=== PATIENT | female | born 1985 | race Caucasian/White ===

== ENCOUNTER → 2017-08-18 10:52 | Outpatient (CLI) | payer OTHER, SELFPAY ==
[2017-08-18 11:48] LABS: Hemoglobin A1c 4.5 % (4.2-6.3)
[2017-08-18 12:04] LABS: Estradiol 101.6 pg/mL; Free T3 2.6 pg/mL (2.18-3.98); Thyroid Stim Hormone (TSH) 0.88 uIU/mL (0.358-3.74)
[2017-08-18 12:05] LABS: Progesterone Level 5.11 ng/mL (See Comment)
== END ==
PROVIDERS: Visit Provider Obstetrics & Gynecology
DX: N92.6 Irregular menstruation, unspecified (principal)
CPT/HCPCS: 36415; 82670; 83036; 84144; 84403; 84443; 84481

== ENCOUNTER 2017-08-30 23:23 | Observation (INO) | payer OTHER, SELFPAY ==
[2017-08-30 21:22] VITALS: BP 171/89; PULSE 90; RESP 20; TEMP 36.4; O2SAT 99; BMI 37.7
--- NOTE | 2017-08-30 21:47 | ED.DCSUM_ITS ---
- ER Visit Summary Date of Service: 08/30/17 Chief Complaint: Right ankle injury History of Present Illness: The patient is a 32 F who was walking her dog and slipped on ice, injuring her right ankle. Severe sudden pain, unable to move it or put weight on it, presents by EMS. Cut out of the boot that she was wearing. Physical Examination: In acute painful distress. No deformity of the right ankle, however the slightest movement creates severe pain, and her foot is abnormally externally rotated with regards to the position of the patella/knee. Swelling and tenderness lateral malleolus, no lacerations or break in the skin. Neurovascularly intact distally with 2+ dorsalis pedis pulse and able to wiggle her toes, brisk cap refill. No tenderness of the proximal fibula or elsewhere in the knee. Abrasion mid doyle. Test Results: Right ankle x-ray shows displaced segmental fracture of the tibia and fibula at about the junction of the distal third and middle third, above the ankle. This is likely at the level of the top of her boot that she was wearing. Emergency Department Course and Treatment: Patient is in extreme pain with the slightest movement at all of her right lower extremity, which is quite unstable and is abnormally externally rotated distal to the knee, although not otherwise deformed lying in the bed at rest. She has not eaten in [address] Kaminski who is amenable to admitting her for pain control and reevaluation , we will reduce and splint her and provide procedural sedation. After informed consent, patient was given fentanyl followed by propofol for procedural sedation, which was performed by myself and nurse without complication. With an marketing assistant retail division, I performed gentle closed reduction with distraction and internal rotation of the foot, and placed a fabricated Ortho- Glass short leg posterior splint with sugar tong also made of Ortho-Glass. After wrapping and molding, she is neurovascularly intact distally, and on reevaluation she states it is throbbing but it feels better because it feels more stable. Postreduction x-rays show improvement of the anterior tibial displacement, but there is still lateral displacement of approximately 1 centimeter. Disposition: Admit Impression: Acute closed displaced right distal tibia and fibula fractures This note was generated with [employer] dictation software. It may contain incorrect words, spelling, and punctuation that were not noted in review of the chart prior to signing ED Disposition - Plan for ED Patient: Disposition: Acute Care Hospital [facility] Chief Complaint: Lower Extremity Injury
[2017-08-30] MEDS: Ondansetron 4 MG/2 ML Vial IV (21:52)
--- NOTE | 2017-08-30 21:54 | RAD_ITS ---
STUDY: X-RAY - RIGHT ANKLE REASON FOR EXAM: Female, 32 years old. Status post fall. Pain. TECHNIQUE: 2 view(s) of the ankle. COMPARISON: None. FINDINGS: There is a mildly comminuted acute traumatic fracture of the distal tibial shaft with 1.1 cm anterior displacement. There is a mildly comminuted acute traumatic fracture of the distal fibular shaft with 6 mm lateral displacement and mild angulation convex medially. As seen on lateral view, there is a questionable finding of a vertical fracture through the posterior malleolus with 0.5 mm superior displacement. Visualization is of this area is limited by overlap with the distal fibula. Normal medial and lateral malleoli. Normal tibiotalar articulation and ankle mortise. Normal visualized talus and calcaneus. The visualized subtalar, talonavicular, calcaneocuboid and tarsal articulations are normal. The soft tissue structures are unremarkable. RAD/Ankle 2 Views IMPRESSION: Fractures of the distal tibial and fibular shafts, as above. Questionable finding of a minimally displaced fracture through the posterior malleolus. Slightly oblique lateral view might use for confirmation. Electronically Signed: Sujit Pantoja MD at 22:41 EST , Service support ,
[2017-08-30] MEDS: 0.9% Normal Saline 1,000 ML 100 ML IV (22:34)
[2017-08-30] MEDS: fentaNYL 100 MCG/2 ML Ampul 50 MCG IV (23:01)
[2017-08-30 23:25] VITALS: BP 151/66; PULSE 96; RESP 13; O2SAT 98
[2017-08-30 23:32] VITALS: BP 151/61; PULSE 96; RESP 13; O2SAT 99
[2017-08-30 23:35] VITALS: BP 135/67; BP 139/66; BP 150/70; PULSE 102; PULSE 89; PULSE 93; RESP 15; RESP 20; RESP 22; O2SAT 100
[2017-08-31] VITALS (16 sets, daily range): BP systolic 119–153; BP diastolic 63–95; PULSE 81–102; RESP 13–18; TEMP 36.3–37.3; O2SAT 91–100; BMI 34.6
[2017-08-31] MEDS: Propofol 200 MG/20 ML Vial 100 MG IV BOLUS (00:32)
--- NOTE | 2017-08-31 00:32 | RAD_ITS ---
STUDY: X-RAY - RIGHT ANKLE REASON FOR EXAM: Female, 32 years old. Post reduction. TECHNIQUE: 2 view(s) of the ankle. Images were obtained through an overlying fiberglass cast. COMPARISON: 08/30/2017. FINDINGS: There is redemonstration of a comminuted distal fibular shaft fracture. There is currently 6.5 mm lateral displacement, without significant angulation. There is redemonstration of a mildly comminuted distal tibial shaft fracture. Currently, there is 9 mm lateral displacement, 5 mm and displacement, and no significant angulation. I suspect that there is a nondisplaced vertical fracture through the posterior malleolus, although this is not definitively visualized.. Normal medial and lateral malleoli. Normal tibiotalar articulation and ankle mortise. Normal visualized talus and calcaneus. The visualized subtalar, talonavicular, calcaneocuboid and tarsal articulations are normal. The soft tissue structures are unremarkable. RAD/Ankle 2 Views IMPRESSION: Mildly displaced distal tibial and fibular shaft fractures, as above. Questionable finding of a nondisplaced posterior malleolar fracture. Electronically Signed: Sujit Pantoja MD at 1:39 EST , Service support ,
[2017-08-31] MEDS: fentaNYL 100 MCG/2 ML Ampul 50 MCG IV (00:33)
[2017-08-31] MEDS: oxyCODONE 5 MG Tablet 10 MG PO ×3 (02:18→22:15)
[2017-08-31] MEDS: Ketorolac 15 MG/ML Vial IV ×2 (02:19→17:29)
[2017-08-31 06:50] LABS: Absolute Lymphocyte Count 2.57 X10^3/ul (0.83-4.51); Basophil# 0.02 X10^3/uL; Basophil% 0.2 % (0-1); Eosinophil# 0.13 X10^3/uL; Eosinophils% 1.2 % (0-5); Hematocrit 37.8 % (37-47); Hemoglobin 12.7 g/dl (12.0-15.0); Lymphocyte # 2.57 X10^3/ul (4.0); Lymphocyte % 24.6 % (19-41); Mean Corp Hgb Conc 33.6 g/gl (32-36); Mean Corpuscular Hgb 30.2 pg (27.0-32.0); Mean Platelet Vol. 9.5 fl (6.2-12.0); Monocyte% 6.7 % (0-10); Neutrophil # 7.01 X10^3/uL (2.7-7.7); Neutrophil % 67.2 % (47-70); Platelet Count 270 K/mm3 (150-450); RBC Distribution Width SD 42.1 fl (35.1-43.9); White Blood Count 10.4 K/mm3 (4.4-11.0)
[2017-08-31 06:54] LABS: International Normalized Ratio 1.1; Prothrombin Time (Protime)PT. 13.4 SECONDS (11.7-14.9)
[2017-08-31 06:56] LABS: POSITIVE COUNT NO; POSITIVE DIFFERENTIAL NO; POSITIVE MORPHOLOGY NO
--- NOTE | 2017-08-31 07:12 | PCM.HP.STD ---
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 Lives: Spouse/ Significant Other Smoking Status: Smoker, status unknown Alcohol: None Drugs: None Review of Systems Constitutional: Denies: Chills, Fever, Weight Change HEENT: Denies: Head Aches, Sinus Congestion, Sinus Drainage Cardiovascular: Denies: Chest Pain, Palpitations Respiratory: Denies: Cough, Shortness of breath at rest, Sputum production Psychiatric: Denies: Anxiety, Depression, Homicidal Ideations, Suicidal Ideations VTE Information - Inpt Only VTE Present on Admission: No VTE Mechan Device Prophylaxis: SCD's, Knee High SHAUNNA Hose VTE Pharm Prophylaxis ordered?: No Patient Problems: Active and Suspected Problems Other fracture of shaft of right tibia, initial encounter for closed fracture (Acute) Other fracture of shaft of right fibula, initial encounter for closed fracture (Acute) Subjective: 32-year-old female who sustained a fall from standing height on some ice last night. Patient subsequently had acute onset of right lower extremity pain was taken to the emergency room where she was found to have a displaced closed distal third tibia fracture spiral oblique with an associated fibula fracture distal third to midshaft. Patient underwent a closed reduction by the emergency room physician and placed into a splint and subsequently admitted up to the floor under my service for probable operative intervention. At the time evaluation the patient denied any other associated contralateral or upper extremity pains. She had been informed up to 40% of injuries can be found after the fact showed to be remain vigilant. Patient denied any other sniffing fevers chills nausea vomiting chest pain or shortness of breath. She pointed to her right lower extremity. Denies any moira ankle pain to left. No ipsilateral right knee pain noted. She is currently n.p.o. awaiting surgical intervention for 10 AM. - Physical Exam General: Alert, Oriented x3, Cooperative, No apparent distress HEENT: PERRLA, EOMI Neck: Supple Lungs: Clear to auscultation, No rhonchi, No wheeze Cardiovascular: Regular rate, Regular Rhythm, Normal S1, Normal S2 Abdomen: Bowel Sounds Present, Soft, Non Tender, Non-Distended, No Hepato-splenomegaly Musculoskeletal: - - Patient remains distally neurovascular intact. She will actually move her toes no flexion extension. Patient has no pain with passive and active flexion of the digits. She has +2 capillary refill. Patient has good sensation of the superficial deep peroneal nerves. Patient has no ipsilateral knee swelling at this time. She has a very slight abrasion which will be out of the operative field at the proximal aspect of the knee. Otherwise will gently move her knee through appropriate range of motion remains ligamentously stable. No long bone pain to the murmur. Patient has no contralateral pain across the hip ankle or knee. Again EHL anterior gastrocsoleus peroneals quads hamstrings 5 out of 5. She has +2 pulses. Labs are pending. Radiographs: Evaluated by myself with the patient-patient has a distal third spiral oblique tibial shaft fracture with an associated distal fibula fracture. Lymphatic: No Cervical, Supraclavicular, or Inguinal Adenopathy, Cervical Adenopathy Vital Signs Temp Pulse Resp BP Pulse Ox 97.7 F L 88 16 153/85 H 97 08/31/17 02:24 08/31/17 02:24 08/31/17 02:24 08/31/17 02:24 08/31/17 02:24 Oxygen Flow Rate [4] 2 Oxygen Flow Rate [3] 2 Oxygen Flow Rate [1 (Initial 2 Baseline)] Oxygen Flow Rate 2 Oxygen Delivery Method [4] Nasal Cannula Oxygen Delivery Method [3] Nasal Cannula Oxygen Delivery Method [1 ( Nasal Cannula Initial Baseline)] Oxygen Delivery Method Room Air Weight: 220 lb 7.396 oz Body Mass Index (BMI) 34.6 Intake and Output for Last 24 Hours 08/29/17 08/30/17 08/31/17 23:59 23:59 23:59 Intake Total 413 / 413 Balance 413 / 413 Laboratory Tests Past 24 Hrs 08/31/17 08/31/17 08/31/17 06:32 06:32 06:32 WBC 10.4 RBC 4.20 Hgb 12.7 Hct 37.8 MCV 90.0 MCH 30.2 MCHC 33.6 RDW 13.0 RDW Differential 42.1 Plt Count 270 MPV 9.5 Immature Gran % (Auto) 0.100 Neut % (Auto) 67.2 Lymph % (Auto) 24.6 [place] % (Auto) 6.7 Eos % (Auto) 1.2 Baso % (Auto) 0.2 Absolute Neuts (auto) 7.0 Absolute Lymphs (auto) 2.57 Total Counted Not Reportable PT 13.4 INR 1.1 Sodium Pending Potassium Pending Chloride Pending Carbon Dioxide Pending Anion Gap Pending BUN Pending Creatinine Pending Est GFR (MDRD) Af Amer Pending Est GFR (MDRD) Non-Af Pending BUN/Creatinine Ratio Pending Glucose Pending Calcium Pending Assessment/Plan Active and Suspected Problems Other fracture of shaft of right tibia, initial encounter for closed fracture (Acute) Other fracture of shaft of right fibula, initial encounter for closed fracture (Acute) Assessment: Right closed distal tibia and fibula fracture initial encounter. Associated right ankle pain. Plan: At this point time plan will be for surgical intervention later this morning. Patient was counseled consented for a right leg IM nail versus open reduction internal fixation of the tibia and fibula. Patient has been counseled that the fibula may not be treated today if the swelling is too significant to prevent a wound dehiscence. Patient understands risks and benefits to include damage to nerves muscles arteries and veins development of DVT PE infection and . Patient is aware of symptomatic hardware and need for removal. Patient is aware of risk for osteomyelitis. Patient aware as well that aspirin will be used for DVT prophylaxis. Recommend patient stop smoking at this point time. Maintain gentle elevation of the extremity. We will place SCDs teds the contralateral limb. Antibiotics will be ordered preoperatively. Patient has also been counseled about compartment syndrome and to be aware this can be an acute versus chronic setting. Maintain n.p.o. status at this time. Will place patient on IV fluids. Any major issues please contact me.
[2017-08-31 07:19] LABS: Anion Gap 8 (5-15); BUN 13 mg/dL (7-18); BUN/Creat Ratio 15.8 RATIO (10-20); Chloride 103 mmol/L (98-107); Creatinine, Serum 0.82 mg/dL (0.55-1.02); EST Glomerular Filtration Rate 86 mL/min (>60); Est Glom Filt Rate - Afr Amer 104 mL/min (>60); Estimated Creatinine Clearance 93.91 ml/min; Glucose 82 mg/dL (74-106); Potassium 3.3 mmol/L (3.5-5.1); Sodium Level 139 mmol/L (136-145)
--- NOTE | 2017-08-31 07:22 | HP.PCM_ITS ---
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 Lives: Spouse/ Significant Other Smoking Status: Smoker, status unknown Alcohol: None Drugs: None Review of Systems Constitutional: Denies: Chills, Fever, Weight Change HEENT: Denies: Head Aches, Sinus Congestion, Sinus Drainage Cardiovascular: Denies: Chest Pain, Palpitations Respiratory: Denies: Cough, Shortness of breath at rest, Sputum production Psychiatric: Denies: Anxiety, Depression, Homicidal Ideations, Suicidal Ideations VTE Information - Inpt Only VTE Present on Admission: No VTE Mechan Device Prophylaxis: SCD's, Knee High SHAUNNA Hose VTE Pharm Prophylaxis ordered?: No Patient Problems: Active and Suspected Problems Other fracture of shaft of right tibia, initial encounter for closed fracture ( Acute) Other fracture of shaft of right fibula, initial encounter for closed fracture ( Acute) Subjective: 32-year-old female who sustained a fall from standing height on some ice last night. Patient subsequently had acute onset of right lower extremity pain was taken to the emergency room where she was found to have a displaced closed distal third tibia fracture spiral oblique with an associated fibula fracture distal third to midshaft. Patient underwent a closed reduction by the emergency room physician and placed into a splint and subsequently admitted up to the floor under my service for probable operative intervention. At the time evaluation the patient denied any other associated contralateral or upper extremity pains. She had been informed up to 40% of injuries can be found after the fact showed to be remain vigilant. Patient denied any other sniffing fevers chills nausea vomiting chest pain or shortness of breath. She pointed to her right lower extremity. Denies any moira ankle pain to left. No ipsilateral right knee pain noted. She is currently n.p.o. awaiting surgical intervention for 10 AM. - Physical Exam General: Alert, Oriented x3, Cooperative, No apparent distress HEENT: PERRLA, EOMI Neck: Supple Lungs: Clear to auscultation, No rhonchi, No wheeze Cardiovascular: Regular rate, Regular Rhythm, Normal S1, Normal S2 Abdomen: Bowel Sounds Present, Soft, Non Tender, Non-Distended, No Hepato- splenomegaly Musculoskeletal: - - Patient remains distally neurovascular intact. She will actually move her toes no flexion extension. Patient has no pain with passive and active flexion of the digits. She has +2 capillary refill. Patient has good sensation of the superficial deep peroneal nerves. Patient has no ipsilateral knee swelling at this time. She has a very slight abrasion which will be out of the operative field at the proximal aspect of the knee. Otherwise will gently move her knee through appropriate range of motion remains ligamentously stable. No long bone pain to the murmur. Patient has no contralateral pain across the hip ankle or knee. Again EHL anterior gastrocsoleus peroneals quads hamstrings 5 out of 5. She has +2 pulses. Labs are pending. Radiographs: Evaluated by myself with the patient-patient has a distal third spiral oblique tibial shaft fracture with an associated distal fibula fracture. Lymphatic: No Cervical, Supraclavicular, or Inguinal Adenopathy, Cervical Adenopathy Vital Signs Temp Pulse Resp BP Pulse Ox 97.7 F L 88 16 153/85 H 97 08/31/17 02:24 08/31/17 02:24 08/31/17 02:24 08/31/17 02:24 08/31/17 02:24 Oxygen Flow Rate [4] 2 Oxygen Flow Rate [3] 2 Oxygen Flow Rate [1 (Initial 2 Baseline)] Oxygen Flow Rate 2 Oxygen Delivery Method [4] Nasal Cannula Oxygen Delivery Method [3] Nasal Cannula Oxygen Delivery Method [1 ( Nasal Cannula Initial Baseline)] Oxygen Delivery Method Room Air Weight: 220 lb 7.396 oz Body Mass Index (BMI) 34.6 Intake and Output for Last 24 Hours 08/29/17 08/30/17 08/31/17 23:59 23:59 23:59 Intake Total 413 / 413 Balance 413 / 413 Laboratory Tests Past 24 Hrs 08/31/17 08/31/17 08/31/17 06:32 06:32 06:32 WBC 10.4 RBC 4.20 Hgb 12.7 Hct 37.8 MCV 90.0 MCH 30.2 MCHC 33.6 RDW 13.0 RDW Differential 42.1 Plt Count 270 MPV 9.5 Immature Gran % (Auto) 0.100 Neut % (Auto) 67.2 Lymph % (Auto) 24.6 [place] % (Auto) 6.7 Eos % (Auto) 1.2 Baso % (Auto) 0.2 Absolute Neuts (auto) 7.0 Absolute Lymphs (auto) 2.57 Total Counted Not Reportable PT 13.4 INR 1.1 Sodium Pending Potassium Pending Chloride Pending Carbon Dioxide Pending Anion Gap Pending BUN Pending Creatinine Pending Est GFR (MDRD) Af Amer Pending Est GFR (MDRD) Non-Af Pending BUN/Creatinine Ratio Pending Glucose Pending Calcium Pending Assessment/Plan Active and Suspected Problems Other fracture of shaft of right tibia, initial encounter for closed fracture ( Acute) Other fracture of shaft of right fibula, initial encounter for closed fracture ( Acute) Assessment: Right closed distal tibia and fibula fracture initial encounter. Associated right ankle pain. Plan: At this point time plan will be for surgical intervention later this morning. Patient was counseled consented for a right leg IM nail versus open reduction internal fixation of the tibia and fibula. Patient has been counseled that the fibula may not be treated today if the swelling is too significant to prevent a wound dehiscence. Patient understands risks and benefits to include damage to nerves muscles arteries and veins development of DVT PE infection and . Patient is aware of symptomatic hardware and need for removal. Patient is aware of risk for osteomyelitis. Patient aware as well that aspirin will be used for DVT prophylaxis. Recommend patient stop smoking at this point time. Maintain gentle elevation of the extremity. We will place SCDs teds the contralateral limb. Antibiotics will be ordered preoperatively. Patient has also been counseled about compartment syndrome and to be aware this can be an acute versus chronic setting. Maintain n.p.o. status at this time. Will place patient on IV fluids. Any major issues please contact me.
--- NOTE | 2017-08-31 07:44 | RAD_ITS ---
STUDY: X-RAY - RIGHT TIBIA AND FIBULA REASON FOR EXAM: Female, 32 years old. Intraoperative digital documentation images of intramedullary nahum placement into right tibia. TECHNIQUE: 7 intraoperative digital nondiagnostic documentation view(s) of the tibia and fibula were obtained. COMPARISON: None. FINDINGS: 7 images show placement of intramedullary nahum within the previously described fracture of the tibia. RAD/Tibia & Fibula 2 Views IMPRESSION: Intraoperative digital nondiagnostic documentation images of intramedullary nahum with interlocking cancellous screw placement in the right tibia. Electronically Signed: Shahbaz Cummins MD at 15:17 EST , Service support ,
[2017-08-31] MEDS: 0.9% NaCl Peripheral Flush Adult/Peds IV ×3 (09:12→17:29)
[2017-08-31 09:15] LABS: Internal QC Validated? YES +Cl - CLEAR BKGD; Pregnancy, Urine Negative Negative
--- NOTE | 2017-08-31 09:46 | RAD_ITS ---
STUDY: X-RAY - RIGHT TIBIA AND FIBULA REASON FOR EXAM: Female, 32 years old. Postoperative evaluation after intramedullary nahum placement into tibia. TECHNIQUE: 10 view(s) of the tibia and fibula were obtained through casting material. COMPARISON: Earlier in the day. FINDINGS: Intramedullary nahum with interlocking proximal and distal cancellous screws has been placed within the tibia across the previously described oblique fracture of the distal tibia. The comminuted fracture of the distal fibula remains unchanged. There is overlying casting material with skin carlos. RAD/Tibia & Fibula 2 Views IMPRESSION: Intramedullary nahum placement within the tibia without complications at this time. Electronically Signed: Shahbaz Cummins MD at 15:27 EST , Service support ,
--- NOTE | 2017-08-31 09:52 | OP.PN_ITS ---
Problem List (1) Other fracture of shaft of right fibula, initial encounter for closed fracture Status: Acute (2) Other fracture of shaft of right tibia, initial encounter for closed fracture Status: Acute Immediate Post-Op Note Date of Procedure: 08/31/17 Primary Surgeon/Physician: Ruben Kaminski DO end user consultant: Doc Fan Pre-Operative Diagnosis: Right closed distal third spiral oblique tibia fracture with a comminuted midshaft to distal third fibula fracture also closed Post-Operative Diagnosis: Same as above Surgery/Procedure Performed:: Right tibia intramedullary nahum, closed treatment of fibula Description of Surgical Findings:: See dictation Estimated Blood Loss: 50 Specimen's removed: None ASA Class: ASA1 Normal Healthy Patient - Admit VTE Documentation VTE Present on Admission: No VTE Mechan Device Prophylaxis: SCD's, Knee High SHAUNNA Hose VTE Pharm Prophylaxis ordered?: Yes
--- NOTE | 2017-08-31 09:53 | PCM.DC.ORTHO ---
Discharge Activity: Return to Normal Activity, May not drive while taking narcotic pain medications., May Shower, Use Walker, Use Crutches May resume sexual activity in: No Restrictions Ice area for (Minutes): 20 Weight Bearing Status: Toe touch weight bearing Keep extremity elevated above heart level: Right Leg Additional Activity Instructions:: Wiggle toes ad jonathan. May flex and extend knee ad jonathan. Keep splint dry. Call your doctor if your incision/area has: Continuous Slow Oozing, Sudden Increased Bleeding, Increased Pain/ Swelling, Increased Redness, Foul Smelling Discharge Call your doctor if you observe: Fever of 101 or Higher, Coldness, Increased Pain, Numbness or Tingling, Change in Color, Inability to urinate, Inability to have a bowel movement, Using more than one pad per hour, Shortness of breath, Dizziness, Fainting spells, Swelling in the ankles, Chest pain, Prolonged hiccoughing, Increased palpitations (irregular heartbeat), Calf discomfort, Uncontrolled pain Allergies/Adverse Reactions: Allergies bee venom protein (honey bee) Allergy (Verified 08/31/17 05:05) Anaphylaxis Medications to take at Discharge Aspirin E.C. [Ecotrin] 325 mg PO BID #30 tab 09/01/17 Docusate Sodium [Colace] 100 mg PO BID PRN PRN #10 cap 09/01/17 Famotidine [Pepcid] 20 mg PO DAILY #30 tab 09/01/17 Oxycodone HCl/Acetaminophen [Percocet 5/325] 1 - 2 tablet PO Q4H PRN PRN #60 tablet 09/01/17 ProMETHAzine [Phenergan] 25 mg PO Q4H PRN PRN #10 tab 09/01/17 The following prescriptions were given: Oxycodone HCl/Acetaminophen [Percocet 5/325] 1 - 2 tablet PO Q4H PRN PRN #60 tablet PRN Reason: Pain ProMETHAzine [Phenergan] 25 mg PO Q4H PRN PRN #10 tab PRN Reason: Nausea Docusate Sodium [Colace] 100 mg PO BID PRN PRN #10 cap PRN Reason: Constipation Famotidine [Pepcid] 20 mg PO DAILY #30 tab Aspirin E.C. [Ecotrin] 325 mg PO BID #30 tab Primary Care Physician: Care Physician,No Primary [Primary Care Provider] - Please Follow Up With: Ruben Kaminski DO When: call [facility] for appt for 2 weeks Proposed Discharge Date: 09/01/17
[2017-08-31] MEDS: Cefazolin 2 GM in 0.9% Normal Saline 100 ML IV (10:10)
--- NOTE | 2017-08-31 12:04 | OP.PCM_ITS ---
Problem List (1) Other fracture of shaft of right fibula, initial encounter for closed fracture Status: Acute (2) Other fracture of shaft of right tibia, initial encounter for closed fracture Status: Acute Report of Operation Date of Procedure: 08/31/17 Pre-Operative Diagnosis: Right closed distal third spiral oblique tibia fracture with a comminuted midshaft to distal third fibula fracture also closed Post-Operative Diagnosis: Same as above Surgery/Procedure Performed:: Right tibia intramedullary nahum, closed treatment of fibula Description of Surgical Findings:: 32-year-old female who sustained a fall from standing height resulting in a right closed distal third spiral oblique tibia fracture with an associated comminuted fibular fracture. Patient was admitted overnight and subsequently cleared for operative intervention today. She was counseled and consented for intramedullary nahum versus open reduction internal fixation to the right tibia with possible nonoperative treatment of the fibula based on overall mechanical alignment and soft tissue quality. Patient received 2 g Ancef. She underwent a successful intubation. Then she had a well-placed tourniquet to the right proximal thigh. She was then prepped and draped in usual fashion. Initial closed reduction showed an appropriate alignment to the spiral oblique fracture of the tibia making a intramedullary nahum appropriate my opinion. We would make a secondary assessment of the fibula at the end of the procedure based on tissue quality and overall fracture alignment. At that point time the right lower extremity was elevated Esmarch used for exsanguination and tourniquet was increased to 250 mmHg for roughly 45 minutes. Patient had a midline incision made from the inferior pole of the patella down to the tibial tubercle. The peritenon was split and preserve both medial laterally. The patellar tendon was then longitudinally incised. At that point time using C- arm visualization in multiple planes a guidewire was placed on the medial aspect of the lateral tibial eminence within an appropriate center position down the canal. Guidewire was then introduced. We broach reamed accordingly. We then used a passing wire to move down to the fracture line. Using manual reduction and positioning in multiple planes a guidewire was passed across the fracture line and then placed into a center center position of the distal tibia just above the physeal scar. At that point time using soft tissue protection we broached reamed up to 11.5 mm in anticipation of placing a 10 mm nail as we are getting significant amount of chatter with our reamers moving across the diaphysis of the femur. Again we made good maintained good fracture reduction during the passage of our reamers. At that point time we measured the length of the Mau nail to be roughly 330 mm in overall length. The nail was then prepared using standard technique and then passed distally without difficulty. Again we maintained our overall fracture reduction using manual traction and positioning. This was confirmed in AP and lateral planes. Once the nail was down to the fascial scar maintained excellent anatomic alignment in the coronal and sagittal planes. At that point time we turned our attention proximal to placing the static locking screws in the oblique fashion using standard AO technique. We then removed the external rigging for the proximal screws and placed a 15 mm end cap. We then turned our attention to placing static locking screws distally. The leg was brought out into full extension and using perfect [place] technique we placed to static screws in the anterior to posterior hole with a 1 cm incision made anteriorly and blunt dissection down to the cortex to perfect prevent injury to the neurovascular structures. Screw was passed using standard technique. We then placed 1 medial to lateral static locking screw again using standard AO technique with a small 1 cm incision and blunt dissection down to the cortex of the bone. Upon completion confirmation views showed excellent mechanical alignment again AP and sagittal planes. The wounds were copiously irrigated and closed with staple technique. The proximal incision was copious irrigated remove the excess debris and reamings. We then reapproximated just the peritenon using 0 Vicryl with a running Krak?w technique. Soft tissue was reapproximated with 3-0 Vicryl and staple technique. Based on the overall mechanical alignment of the tibia of the fibula actually looked excellent in both AP and lateral planes. The overall length was well-maintained to this comminuted region with a butterfly fragment falling back into good position. Due to some mild soft tissue swelling across the fibula and the aforementioned excellent anatomic alignment which will be followed closely I elected to treat the fibula and a nonoperative management to prevent soft tissue risk of injury. The patient will be protected weightbearing for roughly 8-12 weeks and that should give the fibula ample time to heal. The syndesmosis does not appear to be disrupted. The ankle mortise is otherwise stable. At that point time we elected to dress the wounds using Xeroform 4 x 4's and sterile web roll. The patient was then placed into a L and U-splint with 20 sheets a 5 x 30 plaster using standard technique. The proximal wounds were dressed with Xeroform 4 x 4's ABD and Ceasar wrap. Please note tourniquet was let down prior to placement of the distal interlocking screws. I was scrubbed and available time during our procedure. We had no drains or complications. Implants included the Mau tibial nail set with proximal and distal locking screws. Patient be admitted for 24 hours of IV antibiotics appropriate IV and p.o. pain medication. DVT prophylaxis will include SCDs and teds to the contralateral limb and 325 p.o. twice daily of aspirin with appropriate GI prophylaxis. Any major issues please contact me. finance professional: Doc Fan Type of Anesthesia:: General Specimen's removed: None Estimated Blood Loss (mL): 50 Fluids Replaced: Thousand Grafts/Implants Used: [place] tibial nail set - Complications None - Admit VTE Documentation VTE Present on Admission: No VTE Mechan Device Prophylaxis: SCD's, Knee High SHAUNNA Hose VTE Pharm Prophylaxis ordered?: Yes
--- NOTE | 2017-08-31 13:01 | NURSING ---
Pt back from OR, lethargic but awakens easily. o2 at 2L Via NC maintained. Ice chips and sips of water taken. Elevated RLE on two pillows at this time.
--- NOTE | 2017-08-31 15:34 | NURSING ---
More awake. Talking to visitors. VS taken, oxygen is 99% on 2L NC. THis nurse took pt off the oxygen, will monitor.
--- NOTE | 2017-08-31 17:30 | CPS ---
O2 had been on changed to room air for this check.
[2017-08-31] MEDS: Cefazolin 1 GM/50 ML BAG IV (17:32)
[2017-08-31] MEDS: Famotidine 20 MG Tablet PO (22:15)
[2017-08-31] MEDS: Aspirin 325 MG Tablet PO (22:15)
[2017-09-01 02:11] VITALS: BP 127/60; PULSE 87; RESP 18; TEMP 36.6; O2SAT 97
[2017-09-01] MEDS: Cefazolin 1 GM/50 ML BAG IV (02:16)
[2017-09-01] MEDS: oxyCODONE 5 MG Tablet 10 MG PO ×2 (06:08→14:43)
[2017-09-01] MEDS: Acetaminophen 325 MG Tablet 650 MG PO (06:08)
[2017-09-01 07:39] VITALS: BP 115/76; PULSE 88; RESP 16; TEMP 36.7; O2SAT 96
[2017-09-01] MEDS: Aspirin 325 MG Tablet PO (07:41)
[2017-09-01] MEDS: Famotidine 20 MG Tablet PO (07:41)
--- NOTE | 2017-09-01 07:48 | PCM.DC.BLA ---
Discharge Summary Date of Admission: 08/30/17 Date of Discharge: 09/01/17 Summary: 32-year-old female admitted on 30 August after fall resulting in a right closed spiral oblique distal third tibia fracture with an associated comminuted mid to distal third tibia fractur and what appears to be a minimally displaced fracture of the posterior malleolus. Patient was taken the operating room on 31 August underwent intramedullary nailing of the tibia fracture and closed treatment of the fibula fracture due to good mechanical alignment and concerns about soft tissue. Patient was admitted to the floor for 24 hours of IV antibiotics appropriate IV and p.o. pain medication. DVT prophylaxis included SCDs teds early aggressive range of motion and aspirin 325 p.o. twice daily with GI prophylaxis. Patient was amatory with physical therapy using walker versus crutches. Pain was controlled with p.o. pain medication. Assessment: Right closed distal third tibia fracture and a comminuted fibula fracture with associated posterior malleolus fracture minimally displaced. All initial encounters. Plan: At this point time patient be discharged home with good elevation of the foot and continue with aspirin for the next 30 days. Patient will be nonweightbearing. I will see the patient back in 2 weeks for repeat radiographs and evaluation of her fibula fracture and decide whether not open reduction internal fixation will be warranted at that time. Her soft tissues were questionable at the time of operative intervention with the nailing I did not want to risk an open wound dehiscence and infection. Patient is aware of the possibility for secondary operative intervention to the fibula. Continue with good cast elevation but patient may return to work as long as the foot is elevated. Medications have been sent electronically. Patient will follow me again as stated. Any major issues please contact me.
--- NOTE | 2017-09-01 07:51 | PCM.PN.ORT ---
Patient Problems: Active and Suspected Problems Other fracture of shaft of right tibia, initial encounter for closed fracture (Acute) Other fracture of shaft of right fibula, initial encounter for closed fracture (Acute) Subjective: Postop day 1 status post right tibia intramedullary nailing and closed treatment for comminuted fibula fracture and a nondisplaced minimally displaced posterior malleolus fracture less than 5%. Pain is controlled p.o. pain medication overnight. Patient was ambulatory using a walker but felt a little bit unstable and requested evaluation for crutches. Otherwise tolerating regular diet. Anticipate discharge home later today. No other fevers chills nausea vomiting chest pain or shortness of breath. No signs of acute compartment syndrome noted. - Physical Exam General: Alert, Oriented x3, Cooperative, No apparent distress Musculoskeletal: - - Distally neurovascular intact. EHL FHL intact. Good sensation across superficial deep peroneal nerves. No pain with passive and active flexion of the great toe. Incision is otherwise clean dry and intact. Her grafts reviewed show the nail to be well seated well-placed next mechanical alignment to the tibia and the fibula. Small posterior malleolus fracture identified less than 5% of the articular margin at best. Vital signs remained stable Vital Signs Temp Pulse Resp BP Pulse Ox 98.1 F 88 16 115/76 96 09/01/17 07:39 09/01/17 07:39 09/01/17 07:39 09/01/17 07:39 09/01/17 07:39 Oxygen Flow Rate [4] 2 Oxygen Flow Rate [3] 2 Oxygen Flow Rate [1 (Initial 2 Baseline)] Oxygen Flow Rate 2 Oxygen Delivery Method [4] Nasal Cannula Oxygen Delivery Method [3] Nasal Cannula Oxygen Delivery Method [1 ( Nasal Cannula Initial Baseline)] Oxygen Delivery Method Room Air Weight: 220 lb 7.396 oz Body Mass Index (BMI) 34.6 Intake and Output for Last 24 Hours 08/30/17 08/31/17 09/01/17 23:59 23:59 23:59 Intake Total 3062 / 3062 579 / 579 Output Total 1600 / 1600 400 / 400 Balance 1462 / 1462 179 / 179 Laboratory Tests Past 24 Hrs 08/31/17 08:55 Urine Test Negative Assessment/Plan Active and Suspected Problems Other fracture of shaft of right tibia, initial encounter for closed fracture (Acute) Other fracture of shaft of right fibula, initial encounter for closed fracture (Acute) Assessment: After orthopedic status post right tibia IM nailing for displaced spiral oblique distal third tibia fracture with an associated comminuted fibular fracture and postoperatively identified posterior malleolus fracture. Plan: We will discharge patient home at this time. Physical therapy to evaluate for crutches to see if the patient feels more safe using crutches versus a walker. Patient otherwise instructed maintain good foot elevation. Medications have been sent electronically. Patient will follow-up in 2 weeks. Consideration for operative intervention to the fibula at that time if needed. Any major issues please contact me. Continue with GI prophylaxis and aspirin for DVT prophylaxis.
--- NOTE | 2017-09-01 07:54 | PN.ORTHO_ITS ---
Patient Problems: Active and Suspected Problems Other fracture of shaft of right tibia, initial encounter for closed fracture ( Acute) Other fracture of shaft of right fibula, initial encounter for closed fracture ( Acute) Subjective: Postop day 1 status post right tibia intramedullary nailing and closed treatment for comminuted fibula fracture and a nondisplaced minimally displaced posterior malleolus fracture less than 5%. Pain is controlled p.o. pain medication overnight. Patient was ambulatory using a walker but felt a little bit unstable and requested evaluation for crutches. Otherwise tolerating regular diet. Anticipate discharge home later today. No other fevers chills nausea vomiting chest pain or shortness of breath. No signs of acute compartment syndrome noted. - Physical Exam General: Alert, Oriented x3, Cooperative, No apparent distress Musculoskeletal: - - Distally neurovascular intact. EHL FHL intact. Good sensation across superficial deep peroneal nerves. No pain with passive and active flexion of the great toe. Incision is otherwise clean dry and intact. Her grafts reviewed show the nail to be well seated well-placed next mechanical alignment to the tibia and the fibula. Small posterior malleolus fracture identified less than 5% of the articular margin at best. Vital signs remained stable Vital Signs Temp Pulse Resp BP Pulse Ox 98.1 F 88 16 115/76 96 09/01/17 07:39 09/01/17 07:39 09/01/17 07:39 09/01/17 07:39 09/01/17 07:39 Oxygen Flow Rate [4] 2 Oxygen Flow Rate [3] 2 Oxygen Flow Rate [1 (Initial 2 Baseline)] Oxygen Flow Rate 2 Oxygen Delivery Method [4] Nasal Cannula Oxygen Delivery Method [3] Nasal Cannula Oxygen Delivery Method [1 ( Nasal Cannula Initial Baseline)] Oxygen Delivery Method Room Air Weight: 220 lb 7.396 oz Body Mass Index (BMI) 34.6 Intake and Output for Last 24 Hours 08/30/17 08/31/17 09/01/17 23:59 23:59 23:59 Intake Total 3062 / 3062 579 / 579 Output Total 1600 / 1600 400 / 400 Balance 1462 / 1462 179 / 179 Laboratory Tests Past 24 Hrs 08/31/17 08:55 Urine Test Negative Assessment/Plan Active and Suspected Problems Other fracture of shaft of right tibia, initial encounter for closed fracture ( Acute) Other fracture of shaft of right fibula, initial encounter for closed fracture ( Acute) Assessment: After orthopedic status post right tibia IM nailing for displaced spiral oblique distal third tibia fracture with an associated comminuted fibular fracture and postoperatively identified posterior malleolus fracture. Plan: We will discharge patient home at this time. Physical therapy to evaluate for crutches to see if the patient feels more safe using crutches versus a walker. Patient otherwise instructed maintain good foot elevation. Medications have been sent electronically. Patient will follow-up in 2 weeks. Consideration for operative intervention to the fibula at that time if needed. Any major issues please contact me. Continue with GI prophylaxis and aspirin for DVT prophylaxis.
--- NOTE | 2017-09-01 09:45 | CASEMGMT ---
SHARMAINE HESTER in to see patient and discuss discharge needs. Patient states that she has no DME at home and is requesting script for crutches. Patient states that she has no preferred DME company at this time. SHARMAINE HESTER called Dr. Kaminski's office and requested script for crutches. SHARMAINE HESTER will continue to follow this patient and plan for a safe discharge.
[2017-09-01 15:01] VITALS: BP 139/75; PULSE 96; RESP 18; TEMP 36.6; O2SAT 97
== END 2017-09-01 15:45 | disposition home or self-care (01) ==
LOC: MS3 23:33
PROVIDERS: Anesthesiology; Admitting Provider Orthopaedic Surgery; Emergency Provider Emergency Medicine; Visit Provider Orthopaedic Surgery
PROC: (CPT 27759; principal; 2017-08-31 10:00)
DX: S82.241A Displaced spiral fracture of shaft of right tibia, initial encounter for closed fracture (principal); S82.831A Other fracture of upper and lower end of right fibula, initial encounter for closed fracture; W00.0XXA Fall on same level due to ice and snow, initial encounter; Y93.K1 Activity, walking an animal; Y92.9 Unspecified place or not applicable; F17.200 Nicotine dependence, unspecified, uncomplicated; S82.891A Other fracture of right lower leg, initial encounter for closed fracture
CPT/HCPCS: 27752; 27759; 36415; 73590; 73600; 73610; 76000; 80048; 81025; 85025; 85610; 96361; 96374; 96375; 96376; 97161; 99218; 99285; 99406; A4216; G0378; J2405

== ENCOUNTER → 2017-09-15 14:49 | Outpatient (CLI) | payer OTHER, SELFPAY ==
--- NOTE | 2017-09-15 14:52 | RAD_ITS ---
STUDY: X-RAY - RIGHT TIBIA AND FIBULA REASON FOR EXAM: Postoperative follow-up. TECHNIQUE: 2 view(s) of the tibia and fibula were obtained. COMPARISON: Radiographs 08/31/2017. FINDINGS: There is an intramedullary nahum with interlocking proximal and distal screws transfixing a distal tibial diaphyseal fracture without interval change. There is no interval change of the distal fibular diaphyseal fracture. There is an overlying cast and skin carlos. RAD/Tibia & Fibula 2 Views IMPRESSION: No interval change of intramedullary nahum transfixing a tibial fracture. Electronically Signed: Carlos Enrique Donovan MD at 16:23 EST Tel , Service support ,
--- NOTE | 2017-09-15 14:52 | RAD_ITS ---
STUDY: X-RAY - RIGHT ANKLE REASON FOR EXAM: Female, 32 years old. Fracture TECHNIQUE: 3 view(s) of the ankle. COMPARISON: August 31, 2017 FINDINGS: Fine osseous detail is obscured by the overlying cast. Fracture distal fibula. Alignment is stable. Normal tibiotalar articulation and ankle mortise. Intramedullary nahum in the tibial is noted. This extends through a distal tibial fracture. Skin carlos in place. Normal visualized talus and calcaneus. The visualized subtalar, talonavicular, calcaneocuboid and tarsal articulations are normal. The soft tissue structures are unremarkable. RAD/Ankle min 3 Views IMPRESSION: There has been no change since the prior study. Electronically Signed: Loki De La Garza MD at 21:10 EST , Service support ,
== END ==
PROVIDERS: Visit Provider Orthopaedic Surgery
DX: S82.291A Other fracture of shaft of right tibia, initial encounter for closed fracture (principal); X58.XXXA Exposure to other specified factors, initial encounter; Y93.9 Activity, unspecified; Y92.9 Unspecified place or not applicable; Y99.9 Unspecified external cause status
CPT/HCPCS: 73590; 73610

== ENCOUNTER → 2017-10-13 09:26 | Outpatient (CLI) | payer OTHER, SELFPAY ==
--- NOTE | 2017-10-13 09:28 | RAD_ITS ---
STUDY: X-RAY - RIGHT TIBIA AND FIBULA REASON FOR EXAM: Female, 32 years old. Postop TECHNIQUE: 2 view(s) of the tibia and fibula were obtained. COMPARISON: 09/15/17 FINDINGS: Patient has suffered previously described comminuted spiral fractures in the distal tibia and fibula. The tibial fracture was reduced with intramedullary nahum. Little significant healing is occurred at either fracture since the previous study. Continued follow-up recommended to assure complete osseous union. Alignment at the fracture sites is anatomic. No plain film evidence of hardware complication. RAD/Tibia & Fibula 2 Views IMPRESSION: Healing fractures in the tibia and fibula, little significant change since the previous study. No hardware complication or acute abnormality noted Electronically Signed: Sharif Cm MD at 9:56 EDT , Service support ,
== END ==
PROVIDERS: Visit Provider Orthopaedic Surgery
DX: S82.291A Other fracture of shaft of right tibia, initial encounter for closed fracture (principal); X58.XXXA Exposure to other specified factors, initial encounter; Y93.9 Activity, unspecified; Y92.9 Unspecified place or not applicable; Y99.9 Unspecified external cause status
CPT/HCPCS: 73590

== ENCOUNTER → 2017-11-24 08:03 | Outpatient (CLI) | payer OTHER, SELFPAY ==
--- NOTE | 2017-11-24 08:09 | RAD_ITS ---
STUDY: X-RAY - RIGHT ANKLE REASON FOR EXAM: Female, 32 years old. Fracture follow-up TECHNIQUE: 3 view(s) of the ankle. COMPARISON: 09/15/2017 FINDINGS: The intramedullary nahum is seen within the distal tibia. There is no change in alignment to the distal tibial and fibular fractures. The bones are diffusely demineralized. Normal visualized talus and calcaneus. The visualized subtalar, talonavicular, calcaneocuboid and tarsal articulations are normal. The soft tissue structures are unremarkable. RAD/Ankle min 3 Views IMPRESSION: Diffuse osteopenia. No change in alignment to the distal tibial and fibular fractures. The orthopedic hardware is intact. Electronically Signed: Angel Molina DO at 8:41 EDT Tel , Service support ,
== END ==
PROVIDERS: Visit Provider Orthopaedic Surgery
DX: S82.291A Other fracture of shaft of right tibia, initial encounter for closed fracture (principal); S82.491A Other fracture of shaft of right fibula, initial encounter for closed fracture; X58.XXXA Exposure to other specified factors, initial encounter; Y93.9 Activity, unspecified; Y92.9 Unspecified place or not applicable; Y99.9 Unspecified external cause status
CPT/HCPCS: 73610

== ENCOUNTER → 2017-12-16 14:19 | Outpatient (CLI) | payer OTHER, SELFPAY ==
--- NOTE | 2017-12-16 | CER_PTH ---
PATIENT: MARIANELA BRUNER LOC: [facility]#:[id number] AGE/SX: 40/F ROOM: RE12/16/[address]: Dr. Darcie Miller MD : 1985 BED: DIS: SPEC #: [id number] RECD: 12/16/17 14:16 STATUS: JANIE RAUL #: [id number] JOSE: 12/16/17 00:[address]: Darcie Miller DEPT: SURGICAL PATHOLOGY RECD BY: Kayden Guardado ENTERED: 12/17/17 04:55 SP TYPE: CERV OTHR DR: No Primary Care Phys Tissues: A - Uterine cervix, NOS B - Endocervical Procedures: Surgery Specimen Level IV HEADER OPERATION: Colposcopy with biopsy PRE-OP DIAGNOSIS: HGSIL R87.613 TISSUE SUBMITTED: A ? Cervical biopsy, B - ECC MICROSCOPIC DIAGNOSIS A. 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 B. Endocervix, curettings: Scant degenerative endocervical cells and blood. AM:brian 01/07/18 COMMENT A. Results from immunohistochemistry ([id number]) for surrogate HPV marker (p16) will be reported separately. The case was seen in consultation with Dr. Miryam Goetz of [place] who concurs with the above diagnosis. The complete consultative report is viewable in the patient?s EMR. Case has been reviewed in consultation with Dr. Jarrett who concurs with the above diagnosis. IDC:SJ MICROSCOPIC DESCRIPTION Slides are reviewed. GROSS DESCRIPTION A - Received in fixative is one container labeled with the patient's name and designated cervix biopsy. The specimen consists of two irregular fragments of light ramos soft tissue mixed with mucoid tissue that in aggregate measure 0.5 x 0.2 x 0.1 cm. The specimen is totally submitted in one cassette. B - Received in fixative is one container labeled with the patient's name and designated ECC. The specimen consists of multiple irregular fragments of ramos mucoid tissue that in aggregate measure 0.1 x 0.1 x <0.1 cm. It is doubtful tissue will survive processing. The specimen is totally submitted in one cassette. / NORMA:brian 12/16/17 TC:0 CPT: 48106 x2
--- NOTE | 2017-12-16 | IMM_PTH ---
PATIENT: MARIANELA BRUNER LOC: [facility]#:[id number] AGE/SX: 40/F ROOM: RE12/16/[address]: Dr. Darcie Miller MD : 1985 BED: DIS: SPEC #: [id number] RECD: 12/17/17 13:26 STATUS: JANIE REQ #: [id number] JOSE: 12/16/17 00:[address]: Darcie Miller DEPT: IMMUNOHISTOCHEMISTRY RECD BY: Ginger Payne ENTERED: 12/17/17 13:27 SP TYPE: IMMUNO OTHR DR: No Primary Care Phys Tissues: A - Uterine cervix, NOS Procedures: p16 (initial) KI-67 (add) P53 (add) PHYSICIAN & INSTITUTION [place] [id number] SPECIMEN INFORMATION: Tissue Source: A ? Cervical biopsy Clinical Info: HGSIL Specimen Number: [id number] CPT code: 71786, 07862 x2 METHODOLOGY: Deparaffinized sections of prefer/formalin-fixed tissue or PAP/DQ stained slides are incubated with monoclonal/polyclonal antibodies/oligonucleotide probes. Localization is made via biotin free immunoperoxidase method. Appropriate controls are performed and reacted as expected. Results on target cell population are indicated in the following table: RESULTS: ANTIBODY / CLONE RESULT P16 (E6H4) positive, block-like Ki-67 (30-9) positive, moderate P53 (DO-7) positive, focal These tests were developed and their performance characteristics determined by [facility]. They may not have been cleared or approved by the U.S. Food and Drug Administration. The FDA has determined that such clearance or approval is not necessary. INTERPRETATION: A. Cervical biopsy: Endocervical adenocarcinoma in situ. High grade squamous intraepithelial lesion (HSIL) Case has been reviewed in consultation with Drs. Jarrett and Sofy who concurs with the above diagnosis. IDC:NORMA AM:brian 01/07/18
== END ==
PROVIDERS: Visit Provider Obstetrics & Gynecology
DX: R87.613 High grade squamous intraepithelial lesion on cytologic smear of cervix (HGSIL) (principal)
CPT/HCPCS: 88305; 88341; 88342

== ENCOUNTER → 2018-01-07 13:35 | Outpatient (CLI) | payer OTHER, SELFPAY ==
--- NOTE | 2018-01-07 13:41 | RAD_ITS ---
STUDY: X-RAY - RIGHT ANKLE REASON FOR EXAM: Female, 32 years old. Follow-up TECHNIQUE: 3 view(s) of the ankle. COMPARISON: November 24, 2017 FINDINGS: The distal end of the long intramedullary nahum secured by 2 transversely running cortical screws has been used to transfix a healed or healing fracture of the distal shaft of the tibia. A healing spiral fracture involving the distal shaft of the fibula is still evident. There is disuse osteopenia. The ankle mortise and the subtalar joints are normal. RAD/Ankle min 3 Views IMPRESSION: An internally fixed healed or healing fracture of the distal tibia and a healing fracture of the distal fibula. Disuse osteopenia. Electronically Signed: Ray Bennett, at 6:35 EDT Tel , Service support ,
== END ==
PROVIDERS: Visit Provider Orthopaedic Surgery
DX: S82.291A Other fracture of shaft of right tibia, initial encounter for closed fracture (principal); S82.491A Other fracture of shaft of right fibula, initial encounter for closed fracture; X58.XXXA Exposure to other specified factors, initial encounter; Y93.9 Activity, unspecified; Y92.9 Unspecified place or not applicable; Y99.9 Unspecified external cause status
CPT/HCPCS: 73610

== ENCOUNTER → 2018-07-31 11:47 | Outpatient (CLI) | payer BC, SELFPAY ==
[2018-08-05 14:10] LABS: HPV Reflexed? NOT INDICATED
== END ==
PROVIDERS: Visit Provider Obstetrics & Gynecology
DX: D06.9 Carcinoma in situ of cervix, unspecified (principal)
CPT/HCPCS: 88175; G0145

== ENCOUNTER 2018-08-06 11:18 | Day surgery (SDC) | payer BC, SELFPAY ==
[2018-07-31 14:20] LABS: Hematocrit 39.7 % (37-47); Hemoglobin 13.6 g/dl (12.0-15.0); Mean Corp Hgb Conc 34.3 g/gl (32-36); Mean Corpuscular Hgb 30.6 pg (27.0-32.0); Mean Corpuscular Volume 89.2 fL (81-99); Mean Platelet Vol. 9.9 fl (6.2-12.0); Platelet Count 311 K/mm3 (150-450); RBC Distribution Width CV 12.9 % (11.6-14.6); RBC Distribution Width SD 41.6 fl (35.1-43.9); Red Blood Count 4.45 M/mm3 (4.2-5.4); Scan Indicated on CBC? Y/N NO; White Blood Count 10.5 K/mm3 (4.4-11.0)
[2018-07-31 14:24] LABS: Prothrombin Time (Protime)PT. 13.3 SECONDS (11.7-14.9)
[2018-07-31 14:25] LABS: Partial Thromboplast Time 28.5 Seconds (24.1-36.2)
[2018-08-06 11:37] VITALS: BP 162/88; PULSE 73; RESP 18; TEMP 37.2; O2SAT 97; BMI 36.9
[2018-08-06 11:39] LABS: Internal QC Validated? YES +Cl - CLEAR BKGD; Pregnancy, Urine Negative Negative
--- NOTE | 2018-08-06 13:36 | PCM.OPRPT ---
Report of Operation Date of Procedure: 08/06/18 Pre-Operative Diagnosis: Requests permanent sterilization Post-Operative Diagnosis: Same Surgery/Procedure Performed:: Laparoscopic bilateral tubal occlusion Description of Surgical Findings:: Uterus was noted to be approximately 9 cm slightly anteflexed position bilateral adnexal regions were noted to be benign and entry into the abdominal cavity was noted to be within normal limits Type of Anesthesia:: General Anesthesiologist: Nathaniel Valdivia Special Medications: Cefotetan and 3 g IV preoperatively Specimen's removed: None Drains: None Estimated Blood Loss (mL): Minimal Fluids Replaced: Lactated Ringer Description of Procedure: Patient presented to the operating room in an n.p.o. status. She had monitored placement and underwent a general anesthetic. Once that was found be adequate position in Bryn stirrups she was prepped and draped in normal sterile fashion. Approximately 1 cc. A speculum into the vaginal vault area of GERD and the anterior lip of the cervix was grasped and elevated sounded to approximately 1 cm in sequence position manipulated easily placed to the cervix. Weighted speculum was removed from the vagina. Changing gloves and turned to the top the patient a 5 mm incision was made at the umbilicus a Veress needle was placed through this incision. There is needle placement into the abdominal cavity was reassuring with a water test. Then had removal of the Veress needle CO2 gas infusion and placement of a 5 mm disposable trocar. This was done. Position of the abdominal cavity and prior free and easily under direct visualization a second 5 mm trocar was placed into the area hemostasis was noted. The Filshie clip manipulator was then placed through the suprapubic incision and 2 Filshie clips on each fallopian tube was noted to be placed. Hemostasis was noted and CO2 gas was removed abdominal cavity. Closed with 4-0 Monocryl a good fashion and a mattress suture as well as 2. Sponge instrument and needle counts were correct x2 all injuries have been removed from the vagina. Patient was awake and is able to be discharged after observation Grafts/Implants Used: None - Complications None - Admit VTE Documentation VTE Present on Admission: No VTE Mechan Device Prophylaxis: SCD's VTE Pharm Prophylaxis ordered?: No Reason prophylaxis not ordered:: Procedure Not Indicated
--- NOTE | 2018-08-06 13:42 | DCINST_ITS ---
Discharge Diet: No Restrictions - increase fluid intake for 48 hours. Discharge Activity: Return to Normal Activity, May Drive - when you are no longer taking pain/narcotic medicines., May Shower, May Take a Tub Bath - in 7 days. Return to work on:: 08/10/18 May shower in (days): 0 - TODAY May resume sexual activity in: 1 week Weight Bearing Status: Full weight bearing Lifting Restrictions: none Additional Activity Instructions:: Ambulate often the next week after surgery. Nothing in the vagina for 5 days. Call your doctor if your incision/area has: Continuous Slow Oozing, Sudden Increased Bleeding, Increased Pain/ Swelling, Increased Redness, Foul Smelling Discharge Call your doctor if you observe: Fever of 101 or Higher, Inability to urinate, Inability to have a bowel movement, Using more than one pad per hour Remove Dressing in (days):: 1 - remove 08/07/18 Cleanse incision/area with: Soap & Water Allergies/Adverse Reactions: Allergies bee venom protein (honey bee) Allergy (Verified 08/04/18 08:21) Anaphylaxis Medications to take at Discharge Citalopram [Celexa] 40 mg PO QHS 08/04/18 Primary Care Physician: Rosita Castañeda MD [Primary Care Provider] - Test Results: Test results from this visit will be discussed in further detail at your follow- up appointment, if applicable. Please Follow Up With: Darcie Miller MD - [phone] When: call for follow up appointment
[2018-08-06 13:44] VITALS: BP 135/87; BP 162/88; PULSE 67; RESP 16; TEMP 36.6; O2SAT 93
[2018-08-06 14:00] VITALS: BP 130/61; BP 162/88; PULSE 58; RESP 16; O2SAT 93
[2018-08-06 14:15] VITALS: BP 121/60; BP 162/88; PULSE 67; RESP 16; O2SAT 96
[2018-08-06 14:25] VITALS: BP 126/65; BP 162/88; PULSE 66; RESP 17; TEMP 36.5; O2SAT 95
[2018-08-06] MEDS: oxyCODONE 5 MG Tablet PO (14:49)
[2018-08-06] MEDS: Acetaminophen 325 MG Tablet PO (15:04)
[2018-08-06 16:07] VITALS: BP 157/81; BP 162/88; PULSE 74; RESP 18; TEMP 36.8; O2SAT 99
--- OUTSIDE RECORDS SUMMARY | 2018-10-11 02:44 | XMS RPT_ITS ---
:1985 Author Organization OHIP Support Name Relationship Address Phone JANE BRUNER Unavailable [address] + [place] [address] ABILIO BRUNER Unavailable Unavailable + [place] [address] WAYSA Unavailable [address] + [place] [address] JANE BRUNER Unavailable [address] + [place] [address] GENNA, DANII Unavailable [address] + [place] [address] WAYSA Unavailable [address] + [place] [address] JANE BRUNER Unavailable [address] + [place] [address] JANE BRUNER Unavailable [address] + [place] [address] GENNA, DANII Unavailable [address] + [place] [address] WAYSA Unavailable [address] + [place] [address] JANE BRUNER Unavailable [address] + [place] [address] GENNA, DANII Unavailable [address] + [place] [address] WAYSA Unavailable [address] + [place] [address] JANE BRUNER Unavailable [address] + [place] [address] GENNA, DANII Unavailable [address] + [place] [address] WAYSA Unavailable [address] + [place] [address] JANE BRUNER Unavailable [address] + [place] [address] GENNA, DANII Unavailable [address] + [place] [address] WAYSA Unavailable [address] + [place] [address] JANE BRUNER Unavailable [address] + [place] [address] GENNA, DANII Unavailable [address] + [place] [address] WAYSA Unavailable [address] + [place] [address] JANE BRUNER Unavailable [address] + [place] [address] GENNA, DANII Unavailable [address] + [place] [address] WAYSA Unavailable [address] + [place] [address] JANE BRUNER Unavailable [address] + [place] [address] GENNA, DANII Unavailable [address] + [place] [address] WAYSA Unavailable [address] + [place] [address] JANE BRUNER Unavailable [address] + [place] [address] GENNA, DANII Unavailable [address] + [place] [address] WAYSA Unavailable [address] + [place] [address] JANE BRUNER Unavailable [address] + [place] [address] GENNA, DANII Unavailable [address] + [place] [address] WAYSA Unavailable [address] + [place] [address] JANE BRUNER Unavailable [address] + [place] [address] GENNA, DANII Unavailable [address] + [place] [address] WAYSA Unavailable [address] + [place] [address] JANE BRUNER Unavailable [address] + [place] [address] GENNA, DANII Unavailable [address] + [place] [address] WAYSA Unavailable [address] + [place] [address] JANE BRUNER Unavailable [address] + [place] [address] GENNA, DANII Unavailable [address] + [place] [address] WAYSA Unavailable [address] + [place] [address] JANE BRUNER Unavailable [address] + [place] [address] GENNA, DANII Unavailable [address] + [place] [address] WAYSA Unavailable [address] + [place] [address] JANE BRUNER Unavailable [address] + [place] [address] GENNA, DANII Unavailable [address] + [place] [address] WAYSA Unavailable [address] + [place] [address] JANE BRUNER Unavailable [address] + [place] [address] GENNA, DANII Unavailable [address] + [place] [address] WAYSA Unavailable [address] + [place] [address] JANE BRUNER Unavailable [address] + [place] [address] GENNA, DANII Unavailable [address] + [place] [address] WAYSA Unavailable [address] + [place] [address] Care Team Providers Name Role Phone FAWN SAMPSON MD Attending Unavailable PHYSICIAN, NONE Primary Care Unavailable DORA GARCIA, ИВАН Perez Consulting Unavailable BEREKET OLIVAREZ MD Consulting Unavailable Darcie Miller Attending Unavailable Primay Care Physicia, No Primary Care Unavailable Paul, Darcie Attending Unavailable Darcie Miller Referring Unavailable Rosita Castañeda Primary Care Unavailable Paul, Darcie Attending Unavailable Primay Care Physicia, No Primary Care Unavailable Paul, Darcie Attending Unavailable Primay Care Physicia, No Primary Care Unavailable Primay Care Physicia, No Primary Care Unavailable Gordy, Иван Admitting Unavailable Gordy, Иван Attending Unavailable Gordy, Иван Admitting Unavailable Gordy, Иван Attending Unavailable Primay Care Physicia, No Primary Care Unavailable Gordy, Иван Consulting Unavailable Gordy, Иван Admitting Unavailable Gordy, Иван Attending Unavailable Primay Care Physicia, No Primary Care Unavailable Gordy, Иван Consulting Unavailable Gordy, Иван Attending Unavailable Primay Care Physicia, No Primary Care Unavailable Gordy, Иван Attending Unavailable Primay Care Physicia, No Referring Unavailable Primay Care Physicia, No Primary Care Unavailable Gordy, Иван Attending Unavailable Primay Care Physicia, No Primary Care Unavailable Gordy, Иван Attending Unavailable Primay Care Physicia, No Referring Unavailable Primay Care Physicia, No Primary Care Unavailable Gordy, Иван Attending Unavailable Primay Care Physicia, No Primary Care Unavailable Gordy, Иван Attending Unavailable Primay Care Physicia, No Referring Unavailable Primay Care Physicia, No Primary Care Unavailable Gordy, Иван Attending Unavailable Gordy, Иван Referring Unavailable Primay Care Physicia, No Primary Care Unavailable Darcie Miller Attending Unavailable Primay Care Physicia, No Primary Care Unavailable Darcie Miller Referring Unavailable Gordy, Иван Attending Unavailable Primay Care Physicia, No Referring Unavailable Gordy, Иван Attending Unavailable Primay Care Physicia, No Referring Unavailable Primay Care Physicia, No Primary Care Unavailable Gordy, Иван Attending Unavailable Gordy, Иван Referring Unavailable Primay Care Physicia, No Primary Care Unavailable PROBLEMS PROBLEMS DATE TYPE CONDITION / CODE ATTENDING STATUS SOURCE 08/06/2018 Unknown Z98.890 - Other Darcie Miller Active [place] specified [facility] post[facility]cedural [facility] states / Repository Z98.890(ICD-10) 07/31/2018 Unknown 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 - 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 Miller Active [place] situ of cervix, Community unspecified / Hospital D06.9(ICD-10) Repository 01/07/2018 Unknown S82.291A - Other Иван Kaminski Active [place] fracture of shaft of Community right tibia, initial Hospital encounter for closed Repository fracture / S82.291A(ICD-10) 01/07/2018 Unknown S82.491A - Other Иван Kaminski Active [place] fracture of shaft of Community right fibula, Hospital initial encounter Repository for closed fracture / S82.491A(ICD-10) 09/15/2017 Unknown Z47.89 - Encounter Иван Kaminski Active [place] for other orthopedic Community aftercare / Hospital Z47.89(ICD-10) Repository 08/27/2017 Unknown N93.8 - Other Darcie Miller Active [place] specified abnormal Community uterine and vaginal Hospital bleeding / Repository N93.8(ICD-10) PROCEDURES PROCEDURES No Procedure Records FoundRESULTS RESULTS DISCHARGE INSTRUCTION Observed: 08/06/2018 Status: F Source: [place] 1:42 PM [facility] REPOSITORY [facility] Medical Records Department [address] [place] [address] Instructions for Home/Discharge Instructions 08/06/18 1340 MR#: [id number] Acct: [id number] Name: MARIANELA BRUNER Rep #: [id number] : 1985 33 From: Darcie Miller MD PCP: Rosita Castañeda MD Status: REG MOC Discharge Diet: No Restrictions - increase fluid intake for 48 hours. Discharge Activity: Return to Normal Activity, May Drive - when you are no longer taking pain/narcotic medicines., May Shower, May Take a Tub Bath - in 7 days. Return to work on:: 08/10/18 May shower in (days): 0 - TODAY May resume sexual activity in: 1 week Weight Bearing Status: Full weight bearing Lifting Restrictions: none Additional Activity Instructions:: Ambulate often the next week after surgery. Nothing in the vagina for 5 days. Call your doctor if your incision/area has: Continuous Slow Oozing, Sudden Increased Bleeding, Increased Pain/ Swelling, Increased Redness, Foul Smelling Discharge Call your doctor if you observe: Fever of 101 or Higher, Inability to urinate, Inability to have a bowel movement, Using more than one pad per hour Remove Dressing in (days):: 1 - remove 08/07/18 Cleanse incision/area with: Soap AND Water Allergies/Adverse Reactions: Allergies bee venom protein (honey bee) Allergy (Verified 08/04/18 08:21) Anaphylaxis Medications to take at Discharge Citalopram [Celexa] 40 mg PO QHS 08/04/18 Primary Care Physician: Rosita Castañeda MD [Primary Care Provider] - Test Results: Test results from this visit will be discussed in further detail at your follow-up appointment, if applicable. Please Follow Up With: Darcie Miller MD - [phone] When: call for follow up appointment 08/06/18 1342 <Electronically signed by Darcie Miller MD> Date Darcie Miller MD CC: Rosita Castañeda MD Signed OPERATIVE REPORT Observed: 08/06/2018 Status: F Source: [place] 1:40 PM [facility] REPOSITORY [facility] Medical Records Department [address] [place] [address] Operative Report 08/06/18 1336 MR#: [id number] Acct: [id number] Name: MARIANELA BRUNER Rep #: [id number] : 1985 33 From: Darcie Miller MD PCP: Rosita Castañeda MD Status: [facility] Location: [place] [address] Report of Operation Date of Procedure: 08/06/18 Pre-Operative Diagnosis: Requests permanent sterilization Post-Operative Diagnosis: Same Surgery/Procedure Performed:: Laparoscopic bilateral tubal occlusion Description of Surgical Findings:: Uterus was noted to be approximately 9 cm slightly anteflexed position bilateral adnexal regions were noted to be benign and entry into the abdominal cavity was noted to be within normal limits Type of Anesthesia:: General Anesthesiologist: Nathaniel Valdivia Special Medications: Cefotetan and 3 g IV preoperatively Specimen's removed: None Drains: None Estimated Blood Loss (mL): Minimal Fluids Replaced: Lactated Ringer Description of Procedure: Patient presented to the operating room in an n.p.o. status. She had monitored placement and underwent a general anesthetic. Once that was found be adequate position in Bryn stirrups she was prepped and draped in normal sterile fashion. Approximately 1 cc. A speculum into the vaginal vault area of GERD and the anterior lip of the cervix was grasped and elevated sounded to approximately 1 cm in sequence position manipulated easily placed to the cervix. Weighted speculum was removed from the vagina. Changing gloves and turned to the top the patient a 5 mm incision was made at the umbilicus a Veress needle was placed through this incision. There is needle placement into the abdominal cavity was reassuring with a water test. Then had removal of the Veress needle CO2 gas infusion and placement of a 5 mm disposable trocar. This was done. Position of the abdominal cavity and prior free and easily under direct visualization a second 5 mm trocar was placed into the area hemostasis was noted. The Filshie clip manipulator was then placed through the suprapubic incision and 2 Filshie clips on each fallopian tube was noted to be placed. Hemostasis was noted and CO2 gas was removed abdominal cavity. Closed with 4-0 Monocryl a good fashion and a mattress suture as well as 2. Sponge instrument and needle counts were correct x2 all injuries have been removed from the vagina. Patient was awake and is able to be discharged after observation Grafts/Implants Used: None - Complications None - Admit VTE Documentation VTE Present on Admission: No VTE Mechan Device Prophylaxis: SCD's VTE Pharm Prophylaxis ordered?: No Reason prophylaxis not ordered:: Procedure Not Indicated Date Darcie Miller MD CC: Draft ,URINE Collected: 08/06/2018 Status: F Source: [place] 11:31 AM [facility] REPOSITORY Order Comment: Reason for Laboratory Test PREOP TYPE CODE TESTS RESULT OUT OF REFERENCE UNITS RANGE LAB L400.8000 Negative Normal HCGUQUAL Negative Result Comment: Very dilute urine specimens, as indicated by a low specific gravity, may not contain claims customer service representative levels of hCG. If is still suspected, a first morning urine specimen should be collected 48 hours later and tested. Performed By: #### L400.7600 #### [facility] [address] [place], [address] CBC-COMPLETE BLOOD CNT Collected: 07/31/2018 Status: F Source: [place] NO DIFF 1:34 PM [facility] REPOSITORY TYPE CODE TESTS RESULT OUT OF RANGE REFERENCE UNITS LAB L100.1000 4.4-11.0 K/mm3 Normal WBC 10.5 LAB L100.1200 4.2-5.4 M/mm3 Normal RBC 4.45 LAB L100.1300 12.0-15.0 g/dl Normal HGB 13.6 LAB L100.1400 37-47 % Normal HCT 39.7 LAB L100.1500 81-99 fL Normal MCV 89.2 LAB L100.1600 27.0-32.0 pg Normal MCH 30.6 LAB L100.1700 32-36 g/gl Normal MCHC 34.3 LAB L100.1810 11.6-14.6 % Normal RDW CV 12.9 LAB L100.1820 35.1-43.9 fl Normal RDW SD 41.6 LAB L100.1900 150-450 K/mm3 Normal PLT 311 LAB L100.2000 6.2-12.0 fl Normal MPV 9.9 Performed By: #### L100.0500 #### [facility] [address] [place], [address] PROTHROMBIN TIME W/INR Collected: 07/31/2018 Status: F Source: [place] 1:34 PM [facility] REPOSITORY TYPE CODE TESTS RESULT OUT OF RANGE REFERENCE UNITS LAB L300.4150 11.7-14.9 SECONDS Normal PROTIME 13.3 LAB L300.4200 Normal INR 1.0 Performed By: #### L300.3900, L300.4310 #### [facility] [address] [place], [address] PARTIAL THROMBOPLAST Collected: 07/31/2018 Status: F Source: [place] TIME 1:34 PM [facility] REPOSITORY TYPE CODE TESTS RESULT OUT OF RANGE REFERENCE UNITS LAB L300.4310 24.1-36.2 Seconds Normal PTT 28.5 Performed By: #### L300.3900, L300.4310 #### [facility] [address] [place], [address] TYPE AND SCREEN Collected: 07/31/2018 Status: F Source: [place] 1:34 PM [facility] REPOSITORY Order Comment: Surgery Date: 08/06/18 Hx of Preganancy in last 3 Months No Ever experience any problems with transfusion(s)? N Hx of Transfusion in last 3 Months N Reason for Type AND Screen/Red Cells: SURGERY SURGICAL PROCEDURE: 29088 TYPE CODE TESTS RESULT OUT OF RANGE REFERENCE UNITS LAB B10.0800 O Normal BLOOD TYPE GEL NEGATIVE LAB B100.4000 Normal Antibody NEGATIVE Screen Performed By: #### B101.7475 #### [facility] [address] 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 of containers..01 ThinPrep Vial TYPE CODE TESTS RESULT OUT OF RANGE REFERENCE UNITS LAB L7400.0800 . Normal DIAGN Comment Result Comment: NEGATIVE FOR INTRAEPITHELIAL LESION AND MALIGNANCY. CELLULAR CHANGES ASSOCIATED WITH INFLAMMATION ARE PRESENT. THIS SPECIMEN WAS RESCREENED PART OF OUR HATCHERY EMPLOYEE PROGRAM. LAB L7400.0900 . Normal ADEQ Comment Result Comment: Satisfactory for evaluation. Endocervical and/or squamous metaplastic cells (endocervical component) are present. LAB L7400.1400 . Normal PERFORM Comment Result Comment: Mark Graf, Proced Tech (ASCP) LAB L7400.1500 . Normal QC Comment REV Result Comment: Malu Salinas, Proced Tech (ASCP) LAB L7400.2575 . Normal TEST METHOD Comment Result Comment: This liquid based ThinPrep(R) pap test was screened with the use of an image guided system. LAB L7400.2600 . Normal . COMM LAB L7400.2700 . Normal PAPSMR Comment Result Comment: The Pap smear is a screening test designed to aid in the detection of premalignant and malignant conditions of the uterine cervix. It is not a diagnostic procedure and should not be used as the sole means of detecting cervical cancer. Both false-positive and false-negative reports do occur. LAB L7400.2800 . Normal HPV RFLX Comment Result Comment: The HPV DNA reflex criteria were not met with this specimen result therefore, no HPV testing was performed. Performed at: - [facility] [address] [id number] [employer]: Betty Peng MD, Phone: [phone] Performed By: #### L7400.0350 #### [facility] (refer to report for specific site) refer to report for address and phone number FINAL SURGICAL Observed: 01/26/2018 Status: F Source: [facility] PATHOLOGY REPORT 7:55 AM [facility] REPOSITORY . Pathology Reports Accession: Collected Date/Time: Received Date/Time: Pathologist: [id number] 01/26/2018 07:55 EDT 01/26/2018 11:22 EDT MD ZBIGNIEW IRVIN Final Surgical Pathology Report DIAGNOSIS: A) CERVIX, CONIZATION SPECIMEN: - SQUAMOUS METAPLASIA, MODERATE CHRONIC CERVICITIS. - NO RESIDUAL SQUAMOUS CELL CARCINOMA IN SITU. B) ENDOCERVIX, CURETTAGE: - FRAGMENTS OF ENDOCERVICAL GLANDULAR TISSUE AND MUCUS WITHOUT EVIDENCE OF MALIGNANCY. 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 Received in formalin labeled cold knife cone of cervix is a 2.5 x 2.1 x 1.8 cm cervical cone. There is a suture at one edge marking 12:00. The mucosa is ramos-pink smooth to mildly trabeculated and glistening. There is a 1 cm patent os. The specimen is inked, serially sectioned, and entirely submitted sequentially in a clockwise fashion beginning at 12:00, in 5 cassettes. B. Received in formalin labeled endocervical curettings is about 0.25 cc of blood-tinged mucus. TS -1 Dictated by MARZENA DORSEY ([facility]) MICROSCOPIC DESCRIPTION: Slides reviewed. Electronically Signed by Pathology Report verified by [facility] Electronically signed by ZBIGNIEW IRVIN MD Sign out Date: 01/27/2018 14:48 Performing Lab: [facility], [address] [place] [address] Performed By: #### SPFR #### [place] [address] ORTHOPEDIC VISIT Observed: 01/26/2018 Status: F Source: [place] REPORT 7:48 AM [facility] REPOSITORY [facility] [address] [place] [address] [address] [place] [address] OFFICE VISIT Date of Service: 01/07/18 MR#: [id number] Acct: [id number] Name: MARIANELA BRUNER Rep #: [id number] : 1985 Provider: Иван Kaminski DO Age/Sex: 32/F Location[place] [facility] [place] Status: Signed Intake Intake Visit Reasons: RIGHT ANKLE Is patient in pain?: No Allergies bee venom protein (honey bee) Allergy (Verified 01/07/18 13:43) Anaphylaxis Medications Aspirin E.C. [Ecotrin] 325 mg PO BID #30 tab 09/01/17 [Rx Confirmed 09/15/17] Docusate Sodium [Colace] 100 mg PO BID PRN PRN #10 cap 09/01/17 [Rx Confirmed 09/15/17] Famotidine [Pepcid] 20 mg PO DAILY #30 tab 09/01/17 [Rx Confirmed 09/15/17] proMETHazine tablet [Phenergan] 25 mg PO Q4H PRN PRN #10 tab 09/01/17 [Rx Confirmed 09/15/17] oxycodone-acetaminophen 5 mg-325 mg tablet 1 - 2 tab PO Q6H PRN #60 tab 10/15/17 [Rx] exogen bone stimulator #1 ea NS 11/24/17 [Rx Confirmed 11/24/17] PFSH Surgical History right tibia nail (Inactive) Family History Mother Breast cancer Father Cancer brain and kidney ca Social History Smoking Status: Former smoker quit date: 09/11/17 HPI RIGHT ANKLE: Details: MARIANELA BRUNER is a 32 year old F here today for a followup on her right ankle fracture. She states that she has no pain currently. She ambulates with an antalgic gait since she is unable to go up on her toes. Patient continues to have some swelling into her right ankle. Denies numbness, tingling or other associated symptoms. ROS Const Reports system reviewed and no additional complaints, except as docu Eyes Reports system reviewed and no additional complaints, except as docu ENT Reports system reviewed and no additional complaints, except as docu Card Reports system reviewed and no additional complaints, except as docu Resp Reports system reviewed and no additional complaints, except as docu GI Reports system reviewed and no additional complaints, except as docu Reports system reviewed and no additional complaints, except as docu Musc Reports stiffness Skin/Breast Reports system reviewed and no additional complaints, except as docu Neuro Yes system reviewed and no additional complaints, except as docu Psych Reports system reviewed and no additional complaints, except as docu Endo Reports system reviewed and no additional complaints, except as docu Ortho Exam Right Ankle Skin/Wound: Yes CDI, healed and Soft Tissue Swelling Contralateral Normal: Yes Exam: absent TTP FX site, TTP Lateral Malleolus, TTP ATFL, TTP Medial Malleolus, TTP Deltoid Ligament or TTP Lisfranc Joint Dorsiflexion 0-20: 20 degrees Plantar Flexion 0-40: 40 degrees Compartments: Compartments: soft ROM: none Pain with ROM, none Crepitus with ROM Tests: Cruz Test: 1, Squeeze Test: 1 Anterior Drawer: 0 Motor: Ankle Dorsiflextion: 5, Ankle Plantar Flexion: 5, Ankle Eversion: 5, Ankle Inversion: 5, EHL: 5 Sensation: Deep Peroneal Nerve: I, Superficial Peroneal Nerve: I, Tibial Nerve: I, Sural Nerve: I, Saphenous Nerve: I Pulses: Dorsalis Pedis: 2, Posterior Tibial: 2 ANKLE: Patient is alert oriented 3 in no acute distress. Appropriate eye contact and affect. Otherwise walks with a nonantalgic gait today. No assistive device. She remains intact from L1-S1 distributions. Patient is has mild soft tissue changes consistent with an ankle fracture and tibia fracture but otherwise no signs of erythema no calf pain negative Homans no adenopathy. Patient has excellent range of motion about the ankle joint she does feel some weakness however to the peroneals and to the anterior tibialis as expected from her extended recovery. Patient has no pain with palpation across the fibula at this point time. X-rays: Evaluated by myself patient-patient is status post intramedullary nailing for a tibial shaft fracture with associated mid to distal third comminuted fibula fracture. Overall mechanical alignment is excellent with good healing. There is no screw changes. The fibula looks like it is healing accordingly some fracture line still visible but overall mechanical alignment and length and rotation appears to be within normal limits. Her mortise looks normal. Left Ankle Skin: Yes CDI Contralateral Normal: Yes Compartments: soft Dorsiflexion 0-20: 20 degrees Plantar Flexion 0-40: 40 degrees ROM: No pain with ROM or crepitus with ROM Anterior Drawer: 0 Tests: Cruz Test: 1, Squeeze Test: 1 Motor: Ankle Dorsiflextion: 5, Ankle Plantar Flexion: 5, Ankle Eversion: 5, Ankle Inversion: 5, EHL: 5 Sensation: Deep Peroneal Nerve: I, Superficial Peroneal Nerve: I, Tibial Nerve: I, Sural Nerve: I, Saphenous Nerve: I Pulses: Dorsalis Pedis: 2, Posterior Tibial: 2 Assessment AND Plan Problems 1. Other fracture of shaft of right tibia, subsequent encounter for closed fracture with routine healing S82.291D 2. Other fracture of shaft of right fibula, subsequent encounter for closed fracture with routine healing S82.491D Plan Assessment: Right closed tibia shaft fracture with associated fibular shaft fracture both healing well. Status post intramedullary nailing of the tibia and closed treatment of the fibula. Plan: This point time patient again is doing very well in terms of all mechanical alignment and range of motion. I sent her to physical therapy to work on more core function and strengthening to the lower extremity at this time. Patient agrees with plan. I told the patient as long she is doing well she does not need any further follow-up examination although I am willing to have her seen by my partner in 6 weeks as the patient is aware that I am leaving my practice. There is any other issues patient can return. Otherwise continue with range of motion exercises and strengthening follow-up as needed Orders Orders: Coding Level of Care Code Off vis,est,level 4 Diagnoses Other fracture of shaft of right tibia, subsequent encounter for closed fracture with routine healing S82.291D Other fracture of shaft of right fibula, subsequent encounter for closed fracture with routine healing S82.491D 01/26/18 0748 <Electronically signed by Иван Kaminski DO> Date Иван Simon Signature: Date (if applicable) CC: ANKLE MIN 3 VIEWS Observed: 01/07/2018 Status: F Source: [place] 1:41 PM [facility] [place] REPOSITORY [facility] Imaging Services [address] [place] [address] Ankle min 3 Views MR#: [id number] Acct: [id number] Name: MARIANELA BRUNER Marcia Rep #: [id number] : 1985 F 32 From: Ray Bennett MD PCP: Care Physician, No Primary Status: REG CLI Study: Ankle min 3 Views Date of Exam: 01/07/18 Exam# [id number] Ordering Dr: Иван Kaminski DO STUDY: X-RAY - RIGHT ANKLE REASON FOR EXAM: Female, 32 years old. Follow-up TECHNIQUE: 3 view(s) of the ankle. COMPARISON: November 24, 2017 FINDINGS: The distal end of the long intramedullary nahum secured by 2 transversely running cortical screws has been used to transfix a healed or healing fracture of the distal shaft of the tibia. A healing spiral fracture involving the distal shaft of the fibula is still evident. There is disuse osteopenia. The ankle mortise and the subtalar joints are normal. RAD/Ankle min 3 Views IMPRESSION: An internally fixed healed or healing fracture of the distal tibia and a healing fracture of the distal fibula. Disuse osteopenia. Electronically Signed: Ray Bennett, at 6:35 EDT Tel , Service support , CC: No Primary Care Physician; Иван Kaminski DO Dress Operator: Signed CERVICAL Observed: 12/16/2017 Status: F Source: [place] 12:00 AM [facility] REPOSITORY Patient: MARIANELA BRUNER : 1985 (32/) Acct Num: [id number] Phys: Paul GARCIA,Darcie Unit Num: [id number] Loc: LABSPEC Specimen: [id number] Received: 12/16/17 - 1415 Spec Type: CERV TISSUES TISSUES: A. Uterine cervix, NOS B. Endocervical COMMENT A. Results from immunohistochemistry ([id number]) for surrogate HPV marker (p16) will be reported separately. The case was seen in consultation with Dr. Miryam Goetz of [employer] who concurs with the above diagnosis. The complete consultative report is viewable in the patient s EMR. Case has been reviewed in consultation with Dr. Jarrett who concurs with the above diagnosis. IDC:SJ GROSS DESCRIPTION A - Received in fixative is one container labeled with the patient's name and designated cervix biopsy. The specimen consists of two irregular fragments of light ramos soft tissue mixed with mucoid tissue that in aggregate measure 0.5 x 0.2 x 0.1 cm. The specimen is totally submitted in one cassette. B - Received in fixative is one container labeled with the patient's name and designated ECC. The specimen consists of multiple irregular fragments of ramos mucoid tissue that in aggregate measure 0.1 x 0.1 x <0.1 cm. It is doubtful tissue will survive processing. The specimen is totally submitted in one cassette. / SJ:brian 12/16/17 TC:0 CPT: 76810 x2 HEADER OPERATION: Colposcopy with biopsy PRE-OP DIAGNOSIS: HGSIL R87.613 TISSUE SUBMITTED: A Cervical biopsy, B - ECC MICROSCOPIC DESCRIPTION Slides are reviewed. MICROSCOPIC DIAGNOSIS A. 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 B. Endocervix, curettings: Scant degenerative endocervical cells and blood. AM:brian 01/07/18 Signed [facility] 01/07/18 <signature on file> Performed By: #### PCER #### [facility] [address] [place] [address]. [place], [place], [id number] IMMUNOHISTOCHEMISTRY Observed: 12/16/2017 Status: F Source: [place] 12:00 AM [facility] REPOSITORY Patient: MARIANELA BRUNER : 1985 () Acct Num: [id number] Phys: Darcie Miller MD Unit Num: [id number] Loc: LABSPEC Specimen: [id number] Received: 12/17/17 - 1325 Spec Type: IMMUNO TISSUES TISSUES: A. Uterine cervix, NOS SPECIMEN INFORMATION: Tissue Source: A Cervical biopsy Clinical Info: HGSIL Specimen Number: [id number] CPT code: 94778, 71289 x2 METHODOLOGY: Deparaffinized sections of prefer/formalin-fixed tissue or PAP/DQ stained slides are incubated with monoclonal/polyclonal antibodies/oligonucleotide probes. Localization is made via biotin free immunoperoxidase method. Appropriate controls are performed and reacted as expected. Results on target cell population are indicated in the following table: RESULTS: ANTIBODY / CLONE RESULT P16 (E6H4) positive, block-like Ki-67 (30-9) positive, moderate P53 (DO-7) positive, focal These tests were developed and their performance characteristics determined by [facility]. They may not have been cleared or approved by the U.S. Food and Drug Administration. The FDA has determined that such clearance or approval is not necessary. INTERPRETATION: A. Cervical biopsy: Endocervical adenocarcinoma in situ. High grade squamous intraepithelial lesion (HSIL) Case has been reviewed in consultation with Drs. Jarrett and Sofy who concurs with the above diagnosis. IDC:NORMA AM:brian 01/07/18 PHYSICIAN AND INSTITUTION [address] [address] Signed [facility] 01/07/18 <signature on file> Performed By: #### PIMM #### [facility] [address] [place], [address] ORTHOPEDIC VISIT Observed: 11/26/2017 Status: F Source: [place] REPORT 1:52 PM [facility] REPOSITORY [facility] [address] [place] [address] OFFICE VISIT Date of Service: 11/24/17 MR#: [id number] Acct: [id number] Name: MARIANELA BRUNER Rep #: [id number] : 1985 Provider: Иван Kaminski DO Age/Sex: 32/F Location[place] [facility] [place] [place] Status: Signed Intake Intake Visit Reasons: RIGHT ANKLE Is patient in pain?: Yes Allergies bee venom protein (honey bee) Allergy (Verified 11/24/17 08:14) Anaphylaxis Medications Aspirin E.C. [Ecotrin] 325 mg PO BID #30 tab 09/01/17 [Rx Confirmed 09/15/17] Docusate Sodium [Colace] 100 mg PO BID PRN PRN #10 cap 09/01/17 [Rx Confirmed 09/15/17] Famotidine [Pepcid] 20 mg PO DAILY #30 tab 09/01/17 [Rx Confirmed 09/15/17] proMETHazine tablet [Phenergan] 25 mg PO Q4H PRN PRN #10 tab 09/01/17 [Rx Confirmed 09/15/17] oxycodone-acetaminophen 5 mg-325 mg tablet 1 - 2 tab PO Q6H PRN #60 tab 10/15/17 [Rx] exogen bone stimulator #1 ea NS 11/24/17 [Rx Confirmed 11/24/17] PFSH Surgical History right tibia nail (Inactive) Family History Mother Breast cancer Father Cancer brain and kidney ca Social History Smoking Status: Former smoker quit date: 09/11/17 HPI RIGHT ANKLE: Details: MARIANELA BRUNER is a 32 year old F here today for s/p right tibial nailing dos 08/31/17. Patient states that she is doing well and her pain comes and goes. She has been ambulating with the cam boot which does not cause pain. When she leaves the house she uses her crutches and cam boot. Her incision is healed. Denies numbness, tingling or other associated symptoms. ROS Const Reports system reviewed and no additional complaints, except as docu Eyes Reports system reviewed and no additional complaints, except as docu ENT Reports system reviewed and no additional complaints, except as docu Card Reports system reviewed and no additional complaints, except as docu Resp Reports system reviewed and no additional complaints, except as docu GI Reports system reviewed and no additional complaints, except as docu Reports system reviewed and no additional complaints, except as docu Musc Reports stiffness Skin/Breast Reports system reviewed and no additional complaints, except as docu Neuro Yes system reviewed and no additional complaints, except as docu Psych Reports system reviewed and no additional complaints, except as docu Endo Reports system reviewed and no additional complaints, except as docu Ortho Exam Right Ankle Skin/Wound: Yes CDI and healed Contralateral Normal: Yes Exam: present TTP FX site (Tender to palpation across the fibular shaft. Nontender palpation across the tibia) Dorsiflexion 0-20: 20 degrees Plantar Flexion 0-40: 30 degrees Compartments: Compartments: soft ROM: none Pain with ROM, none Crepitus with ROM Tests: Cruz Test: 1, Squeeze Test: 1 Motor: Ankle Dorsiflextion: 5, Ankle Plantar Flexion: 5, Ankle Eversion: 5, Ankle Inversion: 5, EHL: 5 Sensation: Deep Peroneal Nerve: I, Superficial Peroneal Nerve: I, Tibial Nerve: I, Sural Nerve: I, Saphenous Nerve: I Pulses: Dorsalis Pedis: 2, Posterior Tibial: 2 ANKLE: Alert and oriented 3 no acute distress. I contact affect. Walks an antalgic gait using crutches in the cam boot per my instructions. X-rays: Evaluated myself with the patient-patient's tibia fracture shows is significantly improved bony healing. Overall alignment is well-maintained to the tibia and the fibula however would appear the patient still has a delayed versus nonunion to her fibula comminuted fracture. Again the overall alignment is still anatomic. Syndesmosis is still intact. Patient shows disuse osteopenia into the talus and foot Assessment AND Plan Problems 1. Orthopedic aftercare Z47.89 Plan Assessment: Right tibia shaft fracture status post IM nailing with an associated fibula stress shaft fracture delayed union. Plan: At this point time a recommendation is for bone stimulator to the fibula. I will make an attempt at treatment with a exigent bone stimulator prior to CT examination. Patient's plain film radiographs reveal a delayed versus nonunion. Patient's original reason for not treating the fibula was concerned about swelling during the time of the IM nailing and concerns for wound issues. She has maintained her O maintained her overall mechanical alignment which is excellent I see a little bit more bony healing. We will submit for the [facility] bone stimulator and I am going to advance her weightbearing to full weightbearing as tolerated through the cam boot with no assistive device. Encouraged her to walk around the house without the cam boot on. And to begin to transition away from the cam boot as long as comfortable. We will see her back in 2-3 weeks for repeat x-ray now that she started to load completely across the foot without assistive device. Orders Orders: Medications New: Coding Level of Care Code Global Post Op Diagnoses Orthopedic aftercare Z47.89 11/26/17 1352 <Electronically signed by Иван Kaminski DO> Date Иван Kaminski DO Cosigner Signature: Date (if applicable) CC: ANKLE MIN 3 VIEWS Observed: 11/24/2017 Status: F Source: [place] 8:09 AM [facility] Imaging Services [address] [place] [address] Ankle min 3 Views MR#: [id number] Acct: [id number] Name: MARIANELA BRUNER Rep #: [id number] : 1985 F 32 From: Angel Molina DO PCP: Care Physician, No Primary Status: REG CLI Study: Ankle min 3 Views Date of Exam: 11/24/17 Exam# [id number] Ordering Dr: Иван Kaminski DO STUDY: X-RAY - RIGHT ANKLE REASON FOR EXAM: Female, 32 years old. Fracture follow-up TECHNIQUE: 3 view(s) of the ankle. COMPARISON: 09/15/2017 FINDINGS: The intramedullary nahum is seen within the distal tibia. There is no change in alignment to the distal tibial and fibular fractures. The bones are diffusely demineralized. Normal visualized talus and calcaneus. The visualized subtalar, talonavicular, calcaneocuboid and tarsal articulations are normal. The soft tissue structures are unremarkable. RAD/Ankle min 3 Views IMPRESSION: Diffuse osteopenia. No change in alignment to the distal tibial and fibular fractures. The orthopedic hardware is intact. Electronically Signed: Angel Molina DO at 8:41 EDT Tel , Service support , CC: No Primary Care Physician; Иван Kaminski DO Dress Operator: Signed ORTHOPEDIC VISIT Observed: 10/19/2017 Status: F Source: [place] REPORT 9:15 AM [facility] [address] [place] [address] OFFICE VISIT Date of Service: 10/13/17 MR#: [id number] Acct: [id number] Name: MARIANELA BRUNER Rep #: [id number] : 1985 Provider: Иван Kaminski DO Age/Sex: 32/F Location[place] [facility] [place] [place] Status: Signed Intake Intake Visit Reasons: right ankle Chief Complaint: slipped on ice. broke fibula and tibia Is patient in pain?: No Allergies bee venom protein (honey bee) Allergy (Verified 09/15/17 14:51) Anaphylaxis Medications Aspirin E.C. [Ecotrin] 325 mg PO BID #30 tab 09/01/17 [Rx Confirmed 09/15/17] Docusate Sodium [Colace] 100 mg PO BID PRN PRN #10 cap 09/01/17 [Rx Confirmed 09/15/17] Famotidine [Pepcid] 20 mg PO DAILY #30 tab 09/01/17 [Rx Confirmed 09/15/17] proMETHazine tablet [Phenergan] 25 mg PO Q4H PRN PRN #10 tab 09/01/17 [Rx Confirmed 09/15/17] oxycodone-acetaminophen 5 mg-325 mg tablet 1 - 2 tab PO Q6H PRN #60 tab 10/15/17 [Rx] PFSH Surgical History right tibia nail (Inactive) Family History Mother Breast cancer Father Cancer brain and kidney ca Social History Smoking Status: Former smoker quit date: 09/11/17 HPI right ankle: Details: MARIANELA BRUNER is a 32 year old F here today for a followup on her right tibial nailing dos 08/31/17. Patient states that she is doing well and not having any pain. Her cast is clean, dry and intact. She is able to move her toes with no pain. Denies numbness, tingling or other associated symptoms. ROS Const Reports system reviewed and no additional complaints, except as docu Eyes Reports system reviewed and no additional complaints, except as docu ENT Reports system reviewed and no additional complaints, except as docu Card Reports system reviewed and no additional complaints, except as docu Resp Reports system reviewed and no additional complaints, except as docu GI Reports system reviewed and no additional complaints, except as docu Reports system reviewed and no additional complaints, except as docu Musc Reports joint swelling Skin/Breast Reports system reviewed and no additional complaints, except as docu Neuro Yes system reviewed and no additional complaints, except as docu Psych Reports system reviewed and no additional complaints, except as docu Endo Reports system reviewed and no additional complaints, except as docu Ortho Exam Right Wrist/Hand Skin/Wound: No suture/carlos removed Right Ankle Skin/Wound: Yes CDI and healed; no healing well, suture/carlos removed, wound cleaned, wound care, Ecchymosis, Soft Tissue Swelling or Erythema Contralateral Normal: Yes Exam: present TTP FX site Dorsiflexion 0-20: 15 degrees Plantar Flexion 0-40: 25 degrees Compartments: Compartments: soft ROM: none Pain with ROM, none Crepitus with ROM Tests: Cruz Test: 1, Squeeze Test: 1 Anterior Drawer: 0 Motor: Ankle Dorsiflextion: 5, Ankle Plantar Flexion: 5, Ankle Eversion: 5, Ankle Inversion: 5, EHL: 5 Sensation: Deep Peroneal Nerve: I, Superficial Peroneal Nerve: I, Tibial Nerve: I, Sural Nerve: I, Saphenous Nerve: I Pulses: Dorsalis Pedis: 2 ANKLE: Tender to palpation across the fibula. Incision is otherwise clean dry and intact. The patient moves her excellent range of motion about her knee. No calf pain negative Homans. X-rays: Evaluated by myself with the patient-patient shows good signs of early healing to her spiral oblique tibia fracture. She otherwise longitudinally well aligned across the fibula but still has a butterfly fragment. However syndesmosis is stable. Alignment is excellent. Assessment AND Plan Problems 1. Orthopedic aftercare Z47.89 Plan Assessment: After orthopedics status post right tibia IM nailing and closed treatment for an associated fibula fracture. Plan: At this point I am going to base place the patient into a cam boot and allow her to be 50% weightbearing 6 weeks. We will try to stimulate a little bit more healing to that fibula. I told the patient we can consider going and operatively plating if she desired at this point she wants to avoid another operation. Her syndesmosis is intact except HIDA midshaft fibula fracture and can be treated conservatively in my opinion. Especially the face of its wall alignment we can follow her closely. If the patient does make it to 90 days and will consider using either operative intervention and/or bone stimulator if needed to aid with healing. Hoping that with a 50% weightbearing the tibia tibia will continue to heal well and I will start to stress the fibula little bit more consistently. It does not surprise me however that the fibula is taking more time to heal in the face of a rigid construct going through the tibia and intact syndesmosis. See the patient back in 6 weeks knee radiographs at that time. Any major issues return. Orders Orders: Coding Level of Care Code Global Post Op Diagnoses Orthopedic aftercare Z47.89 10/19/17 0915 <Electronically signed by Иван Kaminski DO> Date Иван Kaminski DO Cosigner Signature: Date (if applicable) CC: TIBIA AND FIBULA Observed: 10/13/2017 Status: F Source: [place] 2 VIEWS 9:28 AM [facility] [place] REPOSITORY [facility] Imaging Services [address] [place] [address] Tibia AND Fibula 2 Views MR#: [id number] Acct: [id number] Name: MARIANELA BRUNER Rep #: [id number] : 1985 F 32 From: Ronny Cm MD PCP: Care Physician, No Primary Status: REG CLI Study: Tibia AND Fibula 2 Views Date of Exam: 10/13/17 Exam# [id number] Ordering Dr: Иван Kaminski DO STUDY: X-RAY - RIGHT TIBIA AND FIBULA REASON FOR EXAM: Female, 32 years old. Postop TECHNIQUE: 2 view(s) of the tibia and fibula were obtained. COMPARISON: 09/15/17 FINDINGS: Patient has suffered previously described comminuted spiral fractures in the distal tibia and fibula. The tibial fracture was reduced with intramedullary nahum. Little significant healing is occurred at either fracture since the previous study. Continued follow-up recommended to assure complete osseous union. Alignment at the fracture sites is anatomic. No plain film evidence of hardware complication. RAD/Tibia AND Fibula 2 Views IMPRESSION: Healing fractures in the tibia and fibula, little significant change since the previous study. No hardware complication or acute abnormality noted Electronically Signed: Sharif Cm MD at 9:56 EDT , Service support , CC: No Primary Care Physician; Иван Kaminski DO Dress Operator: Signed ORTHOPEDIC VISIT Observed: 09/15/2017 Status: F Source: [place] REPORT 3:18 PM [facility] [place] REPOSITORY [facility] [address] [place] [address] [address] [place] [address] OFFICE VISIT Date of Service: 09/15/17 MR#: [id number] Acct: [id number] Name: MARIANELA BRUNER Rep #: [id number] : 1985 Provider: Иван Kaminski DO Age/Sex: 32/F Location: [facility] [place] Status: Signed Intake Intake Visit Reasons: Right Leg Chief Complaint: pain Accompanied by: Is patient in pain?: Yes Pain scale (1-10): 4 Allergies bee venom protein (honey bee) Allergy (Verified 09/15/17 14:51) Anaphylaxis Medications Aspirin E.C. [Ecotrin] 325 mg PO BID #30 tab 09/01/17 [Rx Confirmed 09/15/17] Docusate Sodium [Colace] 100 mg PO BID PRN PRN #10 cap 09/01/17 [Rx Confirmed 09/15/17] Famotidine [Pepcid] 20 mg PO DAILY #30 tab 09/01/17 [Rx Confirmed 09/15/17] ProMETHAzine [Phenergan] 25 mg PO Q4H PRN PRN #10 tab 09/01/17 [Rx Confirmed 09/15/17] oxycodone-acetaminophen 5 mg-325 mg tablet 1 - 2 tab PO Q6H PRN #60 tab 09/15/17 [Rx Confirmed 09/15/17] PFSH Surgical History right tibia nail (Inactive) Family History Mother Breast cancer Father Cancer brain and kidney ca Social History Smoking Status: Former smoker quit date: 09/11/17 HPI Right Leg: Details: MARIANELA BRUNER is a 32 year old F here today for f/u right tibia nailing 08/31/17. She presents nwb in the post op splint, she does state she fell and landed on the ankle last and has had to continue to use pain meds Q6 hrs. Denies any numbness, calf pain or nausea. Her original injury was from a fall on the ice over two weeks ago. ROS Musc Reports limited joint movement, Reports stiffness, Reports joint swelling, Reports joint pain, Reports abnormal walking Neuro Yes abnormal walking Ortho Exam Right Wrist/Hand Skin/Wound: Yes suture/carlos removed Right Ankle Skin/Wound: Yes CDI, suture/carlos removed, wound care and wound cleaned; no healing well, healed, Soft Tissue Swelling or Erythema Contralateral Normal: Yes ROM: present Pain with ROM Tests: Cruz Test: 1, Squeeze Test: 1 Motor: Ankle Dorsiflextion: 5, Ankle Plantar Flexion: 5, Ankle Eversion: 5, Ankle Inversion: 5, EHL: 5 Sensation: Deep Peroneal Nerve: I, Superficial Peroneal Nerve: I, Tibial Nerve: I, Sural Nerve: I, Saphenous Nerve: I Pulses: Dorsalis Pedis: 2, Posterior Tibial: 2 ANKLE: Alert and oriented 3 in no acute distress. Appropriate eye contact contact affect. Otherwise intact L1 S1 distributions. Sutures removed Steri- Strips were applied. X-rays: Radiographs of the tibia and of the ankle-patient is status post IM nail for a spiral oblique distal third tibia fracture with an associated minimally displaced posterior malleolus fracture and a comminuted midshaft fibula fracture. Overall mechanical alignment of the fibula looks very good despite butterfly fragment. Patient's posterior malleolus fracture is actually near anatomic at this time. No loss of reduction from date of operation. No calf pain negative [facility] Assessment AND Plan Problems 1. Orthopedic aftercare Z47.89 Plan Assessment: After orthopedic status post IM nailing. Distal third spiral spiral oblique fracture with associated post her malleolus and mid to distal third comminuted fibula fracture also closed. Plan: At this point time the patient place the patient into a short leg nonweightbearing cast for 4 weeks. I will refill her pain medication. Patient start gentle range of motion about the knee as tolerated. Patient will follow-up in 4 weeks for x-rays out of plaster. We will consider placing into a cam at that time. Overall mechanical alignment looks very good to the fibula and the posterior malleolus. I think at this point I will treat him nonoperatively. Any major issues return. Orders Orders: Medications Refilled: Coding Level of Care Code Global Post Op Diagnoses Orthopedic aftercare Z47.89 09/15/17 1518 <Electronically signed by Иван Kaminski DO> Date Иван Kaminski DO Cosigner Signature: Date (if applicable) CC: TIBIA AND FIBULA Observed: 09/15/2017 Status: F Source: [place] 2 VIEWS 2:52 PM [facility] REPOSITORY [facility] Imaging Services [address] [place] [address] Tibia AND Fibula 2 Views MR#: [id number] Acct: [id number] Name: MARIANELA BRUNER Rep #: [id number] : 1985 F 32 From: Carlos Enrique Donovan MD PCP: Care Physician, No Primary Status: REG CLI Study: Tibia AND Fibula 2 Views Date of Exam: 09/15/17 Exam# [id number] Ordering Dr: Иван Kaminski DO STUDY: X-RAY - RIGHT TIBIA AND FIBULA REASON FOR EXAM: Postoperative follow-up. TECHNIQUE: 2 view(s) of the tibia and fibula were obtained. COMPARISON: Radiographs 08/31/2017. FINDINGS: There is an intramedullary nahum with interlocking proximal and distal screws transfixing a distal tibial diaphyseal fracture without interval change. There is no interval change of the distal fibular diaphyseal fracture. There is an overlying cast and skin carlos. RAD/Tibia AND Fibula 2 Views IMPRESSION: No interval change of intramedullary nahum transfixing a tibial fracture. Electronically Signed: Carlos Enrique Donovan MD at 16:23 EST Tel , Service support , CC: No Primary Care Physician; Иван Kaminski DO Dress Operator: Signed ANKLE MIN 3 VIEWS Observed: 09/15/2017 Status: F Source: [place] 2:52 PM [facility] REPOSITORY [facility] Imaging Services [address] [place] [address] Ankle min 3 Views MR#: [id number] Acct: [id number] Name: MARIANELA BRUNER Rep #: [id number] : 1985 F 32 From: Loki De La Garza MD PCP: Care Physician, No Primary Status: REG CLI Study: Ankle min 3 Views Date of Exam: 09/15/17 Exam# [id number] Ordering Dr: Иван Kaminski DO STUDY: X-RAY - RIGHT ANKLE REASON FOR EXAM: Female, 32 years old. Fracture TECHNIQUE: 3 view(s) of the ankle. COMPARISON: August 31, 2017 FINDINGS: Fine osseous detail is obscured by the overlying cast. Fracture distal fibula. Alignment is stable. Normal tibiotalar articulation and ankle mortise. Intramedullary nahum in the tibial is noted. This extends through a distal tibial fracture. Skin carlos in place. Normal visualized talus and calcaneus. The visualized subtalar, talonavicular, calcaneocuboid and tarsal articulations are normal. The soft tissue structures are unremarkable. RAD/Ankle min 3 Views IMPRESSION: There has been no change since the prior study. Electronically Signed: Loki De La Garza MD at 21:10 EST , Service support , CC: No Primary Care Physician; Иван Kaminski DO Dress Operator: Signed DISCHARGE SUMMARY Observed: 09/01/2017 Status: F Source: [place] 7:51 AM [facility] [place] REPOSITORY [facility] Medical Records Department [address] [place] [address] Discharge Summary 09/01/17 0748 MR#: [id number] Acct: [id number] Name: MARIANELA BRUNER Rep #: [id number] : 1985 32 From: Иван Kaminski DO PCP: Care Physician, No Primary Status: ADM MILADIS Y Location: [place] [address] Discharge Summary Date of Admission: 08/30/17 Date of Discharge: 09/01/17 Summary: 32-year-old female admitted on 30 August after fall resulting in a right closed spiral oblique distal third tibia fracture with an associated comminuted mid to distal third tibia fractur and what appears to be a minimally displaced fracture of the posterior malleolus. Patient was taken the operating room on 31 August underwent intramedullary nailing of the tibia fracture and closed treatment of the fibula fracture due to good mechanical alignment and concerns about soft tissue. Patient was admitted to the floor for 24 hours of IV antibiotics appropriate IV and p.o. pain medication. DVT prophylaxis included SCDs teds early aggressive range of motion and aspirin 325 p.o. twice daily with GI prophylaxis. Patient was amatory with physical therapy using walker versus crutches. Pain was controlled with p.o. pain medication. Assessment: Right closed distal third tibia fracture and a comminuted fibula fracture with associated posterior malleolus fracture minimally displaced. All initial encounters. Plan: At this point time patient be discharged home with good elevation of the foot and continue with aspirin for the next 30 days. Patient will be nonweightbearing. I will see the patient back in 2 weeks for repeat radiographs and evaluation of her fibula fracture and decide whether not open reduction internal fixation will be warranted at that time. Her soft tissues were questionable at the time of operative intervention with the nailing I did not want to risk an open wound dehiscence and infection. Patient is aware of the possibility for secondary operative intervention to the fibula. Continue with good cast elevation but patient may return to work as long as the foot is elevated. Medications have been sent electronically. Patient will follow me again as stated. Any major issues please contact me. 09/01/17 0751 <Electronically signed by Иван Kaminski DO> Date Иван Kaminski DO Cosigner Signature (if applicable): Date CC: No Primary Care Physician; Иван Kaminski DO Signed DISCHARGE INSTRUCTION Observed: 09/01/2017 Status: F Source: [place] 7:45 AM [facility] [place] REPOSITORY [facility] Medical Records Department [address] [place] [address] Instructions for Home/Discharge Instructions 08/31/17 0953 MR#: [id number] Acct: [id number] Name: MARIANELA BRUNER Rep #: [id number] : 1985 32 From: Иван Kaminski DO PCP: Care Physician, No Primary Status: ADM MILADIS Discharge Activity: Return to Normal Activity, May not drive while taking narcotic pain medications., May Shower, Use Walker, Use Crutches May resume sexual activity in: No Restrictions Ice area for (Minutes): 20 Weight Bearing Status: Toe touch weight bearing Keep extremity elevated above heart level: Right Leg Additional Activity Instructions:: Wiggle toes ad jonathan. May flex and extend knee ad jonathan. Keep splint dry. Call your doctor if your incision/area has: Continuous Slow Oozing, Sudden Increased Bleeding, Increased Pain/ Swelling, Increased Redness, Foul Smelling Discharge Call your doctor if you observe: Fever of 101 or Higher, Coldness, Increased Pain, Numbness or Tingling, Change in Color, Inability to urinate, Inability to have a bowel movement, Using more than one pad per hour, Shortness of breath, Dizziness, Fainting spells, Swelling in the ankles, Chest pain, Prolonged hiccoughing, Increased palpitations (irregular heartbeat), Calf discomfort, Uncontrolled pain Allergies/Adverse Reactions: Allergies bee venom protein (honey bee) Allergy (Verified 08/31/17 05:05) Anaphylaxis Medications to take at Discharge Aspirin E.C. [Ecotrin] 325 mg PO BID #30 tab 09/01/17 Docusate Sodium [Colace] 100 mg PO BID PRN PRN #10 cap 09/01/17 Famotidine [Pepcid] 20 mg PO DAILY #30 tab 09/01/17 Oxycodone HCl/Acetaminophen [Percocet 5/325] 1 - 2 tablet PO Q4H PRN PRN #60 tablet 09/01/17 ProMETHAzine [Phenergan] 25 mg PO Q4H PRN PRN #10 tab 09/01/17 The following prescriptions were given: Oxycodone HCl/Acetaminophen [Percocet 5/325] 1 - 2 tablet PO Q4H PRN PRN #60 tablet PRN Reason: Pain ProMETHAzine [Phenergan] 25 mg PO Q4H PRN PRN #10 tab PRN Reason: Nausea Docusate Sodium [Colace] 100 mg PO BID PRN PRN #10 cap PRN Reason: Constipation Famotidine [Pepcid] 20 mg PO DAILY #30 tab Aspirin E.C. [Ecotrin] 325 mg PO BID #30 tab Primary Care Physician: Care Physician,No Primary [Primary Care Provider] - Please Follow Up With: Иван Kaminski DO When: call [facility] for appt for 2 weeks Proposed Discharge Date: 09/01/17 09/01/17 0745 <Electronically signed by Иван Kaminski DO> Date Иван Kaminski DO CC: No Primary Care Physician OPERATIVE REPORT Observed: 08/31/2017 Status: F Source: [place] 12:04 PM [facility] [place] REPOSITORY [facility] Medical Records Department [address] [place] [address] Operative Report 08/31/17 1155 MR#: [id number] Acct: [id number] Name: MARIANELA BRUNER Rep #: [id number] : 1985 32 From: Иван Kaminski DO PCP: Care Physician, No Primary Status: ADM MILADIS Y Location: [place] [address] Problem List (1) Other fracture of shaft of right fibula, initial encounter for closed fracture Status: Acute (2) Other fracture of shaft of right tibia, initial encounter for closed fracture Status: Acute Report of Operation Date of Procedure: 08/31/17 Pre-Operative Diagnosis: Right closed distal third spiral oblique tibia fracture with a comminuted midshaft to distal third fibula fracture also closed Post-Operative Diagnosis: Same as above Surgery/Procedure Performed:: Right tibia intramedullary nahum, closed treatment of fibula Description of Surgical Findings:: 32-year-old female who sustained a fall from standing height resulting in a right closed distal third spiral oblique tibia fracture with an associated comminuted fibular fracture. Patient was admitted overnight and subsequently cleared for operative intervention today. She was counseled and consented for intramedullary nahum versus open reduction internal fixation to the right tibia with possible nonoperative treatment of the fibula based on overall mechanical alignment and soft tissue quality. Patient received 2 g Ancef. She underwent a successful intubation. Then she had a well-placed tourniquet to the right proximal thigh. She was then prepped and draped in usual fashion. Initial closed reduction showed an appropriate alignment to the spiral oblique fracture of the tibia making a intramedullary nahum appropriate my opinion. We would make a secondary assessment of the fibula at the end of the procedure based on tissue quality and overall fracture alignment. At that point time the right lower extremity was elevated Esmarch used for exsanguination and tourniquet was increased to 250 mmHg for roughly 45 minutes. Patient had a midline incision made from the inferior pole of the patella down to the tibial tubercle. The peritenon was split and preserve both medial laterally. The patellar tendon was then longitudinally incised. At that point time using C-arm visualization in multiple planes a guidewire was placed on the medial aspect of the lateral tibial eminence within an appropriate center position down the canal. Guidewire was then introduced. We broach reamed accordingly. We then used a passing wire to move down to the fracture line. Using manual reduction and positioning in multiple planes a guidewire was passed across the fracture line and then placed into a center center position of the distal tibia just above the physeal scar. At that point time using soft tissue protection we broached reamed up to 11.5 mm in anticipation of placing a 10 mm nail as we are getting significant amount of chatter with our reamers moving across the diaphysis of the femur. Again we made good maintained good fracture reduction during the passage of our reamers. At that point time we measured the length of the Mau nail to be roughly 330 mm in overall length. The nail was then prepared using standard technique and then passed distally without difficulty. Again we maintained our overall fracture reduction using manual traction and positioning. This was confirmed in AP and lateral planes. Once the nail was down to the fascial scar maintained excellent anatomic alignment in the coronal and sagittal planes. At that point time we turned our attention proximal to placing the static locking screws in the oblique fashion using standard AO technique. We then removed the external rigging for the proximal screws and placed a 15 mm end cap. We then turned our attention to placing static locking screws distally. The leg was brought out into full extension and using perfect paiute-shoshone technique we placed to static screws in the anterior to posterior hole with a 1 cm incision made anteriorly and blunt dissection down to the cortex to perfect prevent injury to the neurovascular structures. Screw was passed using standard technique. We then placed 1 medial to lateral static locking screw again using standard AO technique with a small 1 cm incision and blunt dissection down to the cortex of the bone. Upon completion confirmation views showed excellent mechanical alignment again AP and sagittal planes. The wounds were copiously irrigated and closed with staple technique. The proximal incision was copious irrigated remove the excess debris and reamings. We then reapproximated just the peritenon using 0 Vicryl with a running Krak w technique. Soft tissue was reapproximated with 3-0 Vicryl and staple technique. Based on the overall mechanical alignment of the tibia of the fibula actually looked excellent in both AP and lateral planes. The overall length was well-maintained to this comminuted region with a butterfly fragment falling back into good position. Due to some mild soft tissue swelling across the fibula and the aforementioned excellent anatomic alignment which will be followed closely I elected to treat the fibula and a nonoperative management to prevent soft tissue risk of injury. The patient will be protected weightbearing for roughly 8-12 weeks and that should give the fibula ample time to heal. The syndesmosis does not appear to be disrupted. The ankle mortise is otherwise stable. At that point time we elected to dress the wounds using Xeroform 4 x 4's and sterile web roll. The patient was then placed into a L and U-splint with 20 sheets a 5 x 30 plaster using standard technique. The proximal wounds were dressed with Xeroform 4 x 4's ABD and Ceasar wrap. Please note tourniquet was let down prior to placement of the distal interlocking screws. I was scrubbed and available time during our procedure. We had no drains or complications. Implants included the Mau tibial nail set with proximal and distal locking screws. Patient be admitted for 24 hours of IV antibiotics appropriate IV and p.o. pain medication. DVT prophylaxis will include SCDs and teds to the contralateral limb and 325 p.o. twice daily of aspirin with appropriate GI prophylaxis. Any major issues please contact me. filter press tender: Doc Fan Type of Anesthesia:: General Specimen's removed: None Estimated Blood Loss (mL): 50 Fluids Replaced: Thousand Grafts/Implants Used: Dalton tibial nail set - Complications None - Admit VTE Documentation VTE Present on Admission: No VTE Mechan Device Prophylaxis: SCD's, Knee High SHAUNNA Hose VTE Pharm Prophylaxis ordered?: Yes 08/31/17 1204 <Electronically signed by Иван Kaminski DO> Date Иван Kaminski DO CC: No Primary Care Physician; Иван Kaminski DO Signed TIBIA AND FIBULA Observed: 08/31/2017 Status: F Source: [place] 2 VIEWS 9:51 AM [facility] [place] REPOSITORY [facility] Imaging Services [address] [place] [address] Tibia AND Fibula 2 Views MR#: [id number] Acct: [id number] Name: ZOHREHMARIANELA Rep #: [id number] : 1985 F 32 From: Shahbaz Cummins MD PCP: Care Physician, No Primary Status: ADM MILADIS Study: Tibia AND Fibula 2 Views Date of Exam: 08/31/17 Exam# [id number] Ordering Dr: Иван Kaminski DO STUDY: X-RAY - RIGHT TIBIA AND FIBULA REASON FOR EXAM: Female, 32 years old. Postoperative evaluation after intramedullary nahum placement into tibia. TECHNIQUE: 10 view(s) of the tibia and fibula were obtained through casting material. COMPARISON: Earlier in the day. FINDINGS: Intramedullary nahum with interlocking proximal and distal cancellous screws has been placed within the tibia across the previously described oblique fracture of the distal tibia. The comminuted fracture of the distal fibula remains unchanged. There is overlying casting material with skin carlos. RAD/Tibia AND Fibula 2 Views IMPRESSION: Intramedullary nahum placement within the tibia without complications at this time. Electronically Signed: Shahbaz Cummins MD at 15:27 EST , Service support , CC: No Primary Care Physician; Иван Kaminski DO Dress Operator: Signed ,URINE Collected: 08/31/2017 Status: F Source: [place] 8:55 AM [facility] [place] REPOSITORY TYPE CODE TESTS RESULT OUT OF REFERENCE UNITS RANGE LAB L400.8000 Negative Normal HCGUQUAL Negative Result Comment: Very dilute urine specimens, as indicated by a low specific gravity, may not contain claims customer service representative levels of hCG. If is still suspected, a first morning urine specimen should be collected 48 hours later and tested. Performed By: #### L400.7600 #### [facility] [address] [place], [address] TIBIA AND FIBULA Observed: 08/31/2017 Status: F Source: [place] 2 VIEWS 7:46 AM [facility] [place] REPOSITORY [facility] Imaging Services [address] [place] [address] Tibia AND Fibula 2 Views MR#: [id number] Acct: [id number] Name: MARIANELA BRUNER Rep #: [id number] : 1985 F 32 From: Shahbaz Cummins MD PCP: Care Physician, No Primary Status: ADM MILADIS Study: Tibia AND Fibula 2 Views Date of Exam: 08/31/17 Exam# [id number] Ordering Dr: Иван Kaminski DO STUDY: X-RAY - RIGHT TIBIA AND FIBULA REASON FOR EXAM: Female, 32 years old. Intraoperative digital documentation images of intramedullary nahum placement into right tibia. TECHNIQUE: 7 intraoperative digital nondiagnostic documentation view(s) of the tibia and fibula were obtained. COMPARISON: None. FINDINGS: 7 images show placement of intramedullary nahum within the previously described fracture of the tibia. RAD/Tibia AND Fibula 2 Views IMPRESSION: Intraoperative digital nondiagnostic documentation images of intramedullary nahum with interlocking cancellous screw placement in the right tibia. Electronically Signed: Shahbaz Cummins MD at 15:17 EST , Service support , CC: No Primary Care Physician; Иван Kaminski DO Dress Operator: Signed HISTORY AND PHYSICAL Observed: 08/31/2017 Status: F Source: [place] EXAM 7:22 AM [facility] [place] REPOSITORY [facility] Medical Records Department [address] [place] [address] History and Physical 08/31/17 0712 MR#: [id number] Acct: [id number] Name: MARIANELA BRUNER Rep #: [id number] : 1985 32 From: Иван Kaminski DO PCP: Care Physician, No Primary Status: ADM MILADIS Y Location: [place] [address] Problem List (1) Other fracture of shaft of right fibula, initial encounter for closed fracture Status: Acute (2) Other fracture of shaft of right tibia, initial encounter for closed fracture Status: Acute History of Present Illness Date of Admission: 08/30/17 The patient is a 32 year old F [] Past Medical History Allergies bee venom protein (honey bee) Allergy (Verified 08/31/17 05:05) Anaphylaxis Home Medications: Ambulatory Orders Medication Instructions Recorded NK [NK] 08/30/17 Surgical History: no surgical history Psychiatric History: No pertinent psych hx 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 OPERATOR history Lives: Spouse/ Significant Other Smoking Status: Smoker, status unknown Alcohol: None Drugs: None Review of Systems Constitutional: Denies: Chills, Fever, Weight Change HEENT: Denies: Head Aches, Sinus Congestion, Sinus Drainage Cardiovascular: Denies: Chest Pain, Palpitations Respiratory: Denies: Cough, Shortness of breath at rest, Sputum production Psychiatric: Denies: Anxiety, Depression, Homicidal Ideations, Suicidal Ideations VTE Information - Inpt Only VTE Present on Admission: No VTE Mechan Device Prophylaxis: SCD's, Knee High SHAUNNA Hose VTE Pharm Prophylaxis ordered?: No Patient Problems: Active and Suspected Problems Other fracture of shaft of right tibia, initial encounter for closed fracture (Acute) Other fracture of shaft of right fibula, initial encounter for closed fracture (Acute) Subjective: 32-year-old female who sustained a fall from standing height on some ice last night. Patient subsequently had acute onset of right lower extremity pain was taken to the emergency room where she was found to have a displaced closed distal third tibia fracture spiral oblique with an associated fibula fracture distal third to midshaft. Patient underwent a closed reduction by the emergency room physician and placed into a splint and subsequently admitted up to the floor under my service for probable operative intervention. At the time evaluation the patient denied any other associated contralateral or upper extremity pains. She had been informed up to 40% of injuries can be found after the fact showed to be remain vigilant. Patient denied any other sniffing fevers chills nausea vomiting chest pain or shortness of breath. She pointed to her right lower extremity. Denies any moira ankle pain to left. No ipsilateral right knee pain noted. She is currently n.p.o. awaiting surgical intervention for 10 AM. - Physical Exam General: Alert, Oriented x3, Cooperative, No apparent distress HEENT: PERRLA, EOMI Neck: Supple Lungs: Clear to auscultation, No rhonchi, No wheeze Cardiovascular: Regular rate, Regular Rhythm, Normal S1, Normal S2 Abdomen: Bowel Sounds Present, Soft, Non Tender, Non-Distended, No Hepato-splenomegaly Musculoskeletal: - - Patient remains distally neurovascular intact. She will actually move her toes no flexion extension. Patient has no pain with passive and active flexion of the digits. She has +2 capillary refill. Patient has good sensation of the superficial deep peroneal nerves. Patient has no ipsilateral knee swelling at this time. She has a very slight abrasion which will be out of the operative field at the proximal aspect of the knee. Otherwise will gently move her knee through appropriate range of motion remains ligamentously stable. No long bone pain to the murmur. Patient has no contralateral pain across the hip ankle or knee. Again EHL anterior gastrocsoleus peroneals quads hamstrings 5 out of 5. She has +2 pulses. Labs are pending. Radiographs: Evaluated by myself with the patient-patient has a distal third spiral oblique tibial shaft fracture with an associated distal fibula fracture. Lymphatic: No Cervical, Supraclavicular, or Inguinal Adenopathy, Cervical Adenopathy Vital Signs Temp Pulse Resp BP Pulse Ox 97.7 F L 88 16 153/85 H 97 08/31/17 02:24 08/31/17 02:24 08/31/17 02:24 08/31/17 02:24 08/31/17 02:24 Oxygen Flow Rate [4] 2 Oxygen Flow Rate [3] 2 Oxygen Flow Rate [1 (Initial 2 Baseline)] Oxygen Flow Rate 2 Oxygen Delivery Method [4] Nasal Cannula Oxygen Delivery Method [3] Nasal Cannula Oxygen Delivery Method [1 ( Nasal Cannula Initial Baseline)] Oxygen Delivery Method Room Air Weight: 220 lb 7.396 oz Body Mass Index (BMI) 34.6 Intake and Output for Last 24 Hours Intake Total 413 / 413 Balance 413 / 413 Laboratory Tests Past 24 Hrs Assessment/Plan Active and Suspected Problems Other fracture of shaft of right tibia, initial encounter for closed fracture (Acute) Other fracture of shaft of right fibula, initial encounter for closed fracture (Acute) Assessment: Right closed distal tibia and fibula fracture initial encounter. Associated right ankle pain. Plan: At this point time plan will be for surgical intervention later this morning. Patient was counseled consented for a right leg IM nail versus open reduction internal fixation of the tibia and fibula. Patient has been counseled that the fibula may not be treated today if the swelling is too significant to prevent a wound dehiscence. Patient understands risks and benefits to include damage to nerves muscles arteries and veins development of DVT PE infection and . Patient is aware of symptomatic hardware and need for removal. Patient is aware of risk for osteomyelitis. Patient aware as well that aspirin will be used for DVT prophylaxis. Recommend patient stop smoking at this point time. Maintain gentle elevation of the extremity. We will place SCDs teds the contralateral limb. Antibiotics will be ordered preoperatively. Patient has also been counseled about compartment syndrome and to be aware this can be an acute versus chronic setting. Maintain n.p.o. status at this time. Will place patient on IV fluids. Any major issues please contact me. 08/31/17 0921 <Electronically signed by Иван Kaminski DO> Date Иван Kaminski DO Cosigner Signature: Date (if applicable) CC: No Primary Care Physician; Иван Kaminski DO Signed CBC W/DIFF, AUTOMATED Collected: 08/31/2017 Status: F Source: [place] 6:32 AM [facility] [place] REPOSITORY Order Comment: Comments: surgery at 1000 TYPE CODE TESTS RESULT OUT OF RANGE REFERENCE UNITS LAB L100.1000 4.4-11.0 K/mm3 Normal WBC 10.4 LAB L100.1200 4.2-5.4 M/mm3 Normal RBC 4.20 LAB L100.1300 12.0-15.0 g/dl Normal HGB 12.7 LAB L100.1400 37-47 % Normal HCT 37.8 LAB L100.1500 81-99 fL Normal MCV 90.0 LAB L100.1600 27.0-32.0 pg Normal MCH 30.2 LAB L100.1700 32-36 g/gl Normal MCHC 33.6 LAB L100.1810 11.6-14.6 % Normal RDW CV 13.0 LAB L100.1820 35.1-43.9 fl Normal RDW SD 42.1 LAB L100.1900 150-450 K/mm3 Normal PLT 270 LAB L100.2000 6.2-12.0 fl Normal MPV 9.5 LAB L100.2100 47-70 % Normal NEUT% 67.2 LAB L100.2200 19-41 % Normal LY% 24.6 LAB L100.2300 0-10 % Normal MONO% 6.7 LAB L100.2400 0-5 % Normal EO% 1.2 LAB L100.2500 0-1 % Normal BASO% 0.2 LAB L100.2550 0.0-0.9 % Normal IM GRAN % 0.100 Result Comment: IG% - Immature Granulocytes (promyelocytes, myelocytes and metamyelocytes) > 1% indicates that a LEFT SHIFT is Present. LAB L100.2620 2.0-7.7 X10 3/uL Normal Absolute Neut 7.0 LAB L100.2720 0.83-4.51 X10 3/ul Normal Absolute Lymph 2.57 Performed By: #### L100.0100 #### [facility] [address] [place], [address] PROTHROMBIN TIME W/INR Collected: 08/31/2017 Status: F Source: [place] 6:32 AM [facility] [place] REPOSITORY Order Comment: Comments: surgery at 1000 TYPE CODE TESTS RESULT OUT OF RANGE REFERENCE UNITS LAB L300.4150 11.7-14.9 SECONDS Normal PROTIME 13.4 LAB L300.4200 Normal INR 1.1 Performed By: #### L300.3900 #### [facility] [address] [place], [address] BASIC METABOLIC Collected: 08/31/2017 Status: F Source: LUIZA PROFILE (BMP) 6:32 AM [facility] REPOSITORY Order Comment: Comments: Surgery at 1000 TYPE CODE TESTS RESULT OUT OF RANGE REFERENCE UNITS LAB L501.0100 74-106 mg/dL Normal GLU 82 Result Comment: Please note revised GLUCOSE reference range effective 2017. LAB L501.1000 7-18 mg/dL Normal BUN 13 LAB L501.1100 0.55-1.02 mg/dL Normal CREAT,SERUM 0.82 Result Comment: The validity of the calculated GFR AND GFRAA in patients over 70 years has not been determined. Clinical correlation is essential. LAB L501.1110 >60 mL/min Normal EST GFR 86 Result Comment: Non- GFR Calc LAB L501.1115 >60 mL/min Normal EST GFR - AA 104 Result Comment: GFR Calc LAB L501.1255 ml/min Normal Estimated CRCL 93.91 LAB L501.1300 10-20 RATIO Normal BUN/CRE 15.8 LAB L501.2200 8.5-10 mg/dL Low .1 CA 8.0 LAB L501.5300 136-14 mmol/L Normal 5 NA 139 LAB L501.5600 3.5-5. mmol/L Low 1 K 3.3 LAB L501.5900 98-107 mmol/L Normal CL 103 LAB L501.6100 21.0-3 mmol/L Normal 2.0 CO2 28.0 LAB L501.6200 5-15 Normal GAP 8 Performed By: #### L500.2500 #### [facility] [address] [place], [address] EMERGENCY DEPARTMENT Observed: 08/31/2017 Status: F Source: WILLIAMSON SUMMARY 12:59 AM [facility] REPOSITORY [facility] Medical Records Department [address] [place] [address] Emergency Department Summary 08/30/17 2146 MR#: [id number] Acct: [id number] Name: MARIANELA BRUNER Rep #: [id number] : 1985 32 From: Zuri Livingston MD PCP: Care Physician, No Primary Status: ADM MILADIS - ER Visit Summary Date of Service: 08/30/17 Chief Complaint: Right ankle injury History of Present Illness: The patient is a 32 F who was walking her dog and slipped on ice, injuring her right ankle. Severe sudden pain, unable to move it or put weight on it, presents by EMS. Cut out of the boot that she was wearing. Physical Examination: In acute painful distress. No deformity of the right ankle, however the slightest movement creates severe pain, and her foot is abnormally externally rotated with regards to the position of the patella/knee. Swelling and tenderness lateral malleolus, no lacerations or break in the skin. Neurovascularly intact distally with 2+ dorsalis pedis pulse and able to wiggle her toes, brisk cap refill. No tenderness of the proximal fibula or elsewhere in the knee. Abrasion mid doyle. Test Results: Right ankle x-ray shows displaced segmental fracture of the tibia and fibula at about the junction of the distal third and middle third, above the ankle. This is likely at the level of the top of her boot that she was wearing. Emergency Department Course and Treatment: Patient is in extreme pain with the slightest movement at all of her right lower extremity, which is quite unstable and is abnormally externally rotated distal to the knee, although not otherwise deformed lying in the bed at rest. She has not eaten in [address] Kaminski who is amenable to admitting her for pain control and reevaluation, we will reduce and splint her and provide procedural sedation. After informed consent, patient was given fentanyl followed by propofol for procedural sedation, which was performed by myself and nurse without complication. With an dietitian assistant, I performed gentle closed reduction with distraction and internal rotation of the foot, and placed a fabricated Ortho-Glass short leg posterior splint with sugar tong also made of Ortho-Glass. After wrapping and molding, she is neurovascularly intact distally, and on reevaluation she states it is throbbing but it feels better because it feels more stable. Postreduction x-rays show improvement of the anterior tibial displacement, but there is still lateral displacement of approximately 1 centimeter. Disposition: Admit Impression: Acute closed displaced right distal tibia and fibula fractures This note was generated with Hitch dictation software. It may contain incorrect words, spelling, and punctuation that were not noted in review of the chart prior to signing ED Disposition - Plan for ED Patient: Disposition: Acute Care Hospital [facility] Chief Complaint: Lower Extremity Injury What to do if you have Problems For any increased pain, shortness of breath, bleeding, nausea or vomiting, chest pain, or any unexpected problems, contact your Primary Care Provider. Call [facility] ([phone]) or report to the closest Emergency Room. Call 911 if necessary. 08/31/17 0059 <Electronically signed by Zuri Livingston MD> Date Zuri Livingston MD Cosigner Signature (If Indicated): Date CC: No Primary Care Physician ANKLE 2 VIEWS Observed: 08/31/2017 Status: F Source: WILLIAMSON 12:27 AM [facility] REPOSITORY [facility] Imaging Services [address] [place] [address] Ankle 2 Views MR#: [id number] Acct: [id number] Name: MARIANELA BRUNER Rep #: [id number] : 1985 F 32 From: Sujit Pantoja MD PCP: Care Physician, No Primary Status: ADM MILADIS Study: Ankle 2 Views Date of Exam: 08/31/17 Exam# [id number] Ordering Dr: Zuri Livingston MD STUDY: X-RAY - RIGHT ANKLE REASON FOR EXAM: Female, 32 years old. Post reduction. TECHNIQUE: 2 view(s) of the ankle. Images were obtained through an overlying fiberglass cast. COMPARISON: 08/30/2017. FINDINGS: There is redemonstration of a comminuted distal fibular shaft fracture. There is currently 6.5 mm lateral displacement, without significant angulation. There is redemonstration of a mildly comminuted distal tibial shaft fracture. Currently, there is 9 mm lateral displacement, 5 mm and displacement, and no significant angulation. I suspect that there is a nondisplaced vertical fracture through the posterior malleolus, although this is not definitively visualized.. Normal medial and lateral malleoli. Normal tibiotalar articulation and ankle mortise. Normal visualized talus and calcaneus. The visualized subtalar, talonavicular, calcaneocuboid and tarsal articulations are normal. The soft tissue structures are unremarkable. RAD/Ankle 2 Views IMPRESSION: Mildly displaced distal tibial and fibular shaft fractures, as above. Questionable finding of a nondisplaced posterior malleolar fracture. Electronically Signed: Sujit Pantoja MD at 1:39 EST , Service support , CC: No Primary Care Physician; ZURI LIVINGSTON MD Dress Operator: Signed ANKLE 2 VIEWS Observed: 08/30/2017 Status: F Source: WILLIAMSON 9:46 PM [facility] REPOSITORY [facility] Imaging Services [address] [place] [address] Ankle 2 Views MR#: [id number] Acct: [id number] Name: ZOHREHMARIANELA Rep #: [id number] : 1985 F 32 From: Sujit Pantoja MD PCP: Care Physician, No Primary Status: REG ER Study: Ankle 2 Views Date of Exam: 08/30/17 Exam# [id number] Ordering Dr: Zuri Livingston MD STUDY: X-RAY - RIGHT ANKLE REASON FOR EXAM: Female, 32 years old. Status post fall. Pain. TECHNIQUE: 2 view(s) of the ankle. COMPARISON: None. FINDINGS: There is a mildly comminuted acute traumatic fracture of the distal tibial shaft with 1.1 cm anterior displacement. There is a mildly comminuted acute traumatic fracture of the distal fibular shaft with 6 mm lateral displacement and mild angulation convex medially. As seen on lateral view, there is a questionable finding of a vertical fracture through the posterior malleolus with 0.5 mm superior displacement. Visualization is of this area is limited by overlap with the distal fibula. Normal medial and lateral malleoli. Normal tibiotalar articulation and ankle mortise. Normal visualized talus and calcaneus. The visualized subtalar, talonavicular, calcaneocuboid and tarsal articulations are normal. The soft tissue structures are unremarkable. RAD/Ankle 2 Views IMPRESSION: Fractures of the distal tibial and fibular shafts, as above. Questionable finding of a minimally displaced fracture through the posterior malleolus. Slightly oblique lateral view might use for confirmation. Electronically Signed: Sujit Pantoja MD at 22:41 EST , Service support , CC: No Primary Care Physician; ZURI LIVINGSTON MD Dress Operator: Signed HEMOGLOBIN A1C Collected: 08/18/2017 Status: F Source: LUIZA 11:00 AM [facility] REPOSITORY TYPE CODE TESTS RESULT OUT OF RANGE REFERENCE UNITS LAB L501.9985 4.2-6.3 % Normal HGB A1C 4.5 Performed By: #### L501.9985 #### [facility] [place], [address] FREE T3 Collected: 08/18/2017 Status: F Source: LUIZA 11:00 AM [facility] REPOSITORY TYPE CODE TESTS RESULT OUT OF RANGE REFERENCE UNITS LAB L501.88855 2.18-3.98 pg/mL Normal FREE T3 2.6 Performed By: #### L501.95704, L501.9520, L3300.1750 #### [facility] [address] [place], [place], [address] THYROID STIM HORMONE Collected: 08/18/2017 Status: F Source: LUIZA (TSH) 11:00 AM [facility] REPOSITORY TYPE CODE TESTS RESULT OUT OF RANGE REFERENCE UNITS LAB L501.9520 0.358-3.74 uIU/mL Normal TSH 0.88 Performed By: #### L501.20956, L501.9520, L3300.1750 #### [facility] [address] [place], [place], [address] (170) ESTRADIOL Collected: 08/18/2017 Status: F Source: LUIZA 11:00 AM [facility] REPOSITORY TYPE CODE TESTS RESULT OUT OF RANGE REFERENCE UNITS LAB L3300.1750 pg/mL Normal ESTRADIOL 101.6 Result Comment: NORMAL REFERENCE RANGES FEMALE FOLLICULAR 21.4 - 164.8 pg/mL MID-CYCLE PEAK 49.9 - 367.2 pg/mL LUTEAL 40.2 - 259.0 pg/mL POST-MENOPAUSAL ON MHT <11.0 - 462.1 pg/mL NOT ON MHT <11.0 - 58.3 pg/mL MALE <11.0 - 52.5 pg/mL NOTE: [facility] HAS CONFIRMED THE DRUG FULVETRANT (FASLODEX) MAY CAUSE FALSELY ELEVATED ESTRADIOL RESULTS WHEN USING THIS TEST METHOD. IF PATIENT IS TAKING FULVESTRANT AN ALTERNATIVE METHOD SHOULD BE USED TO DETERMINE ESTRADIOL CONCENTRATION. Performed By: #### L501.41845, L501.9520, L3300.1750 #### [facility] [address] [place], [place], [address] TESTOSTERONE, SERUM TOTAL Collected: 08/18/2017 Status: F Source: LUIZA 11:00 AM [facility] REPOSITORY TYPE CODE TESTS RESULT OUT OF REFERENCE UNITS RANGE LAB L509.3000 ng/dL Testosterone Normal 25.43 Result Comment: NORMAL REFERENCE RANGES MALE AGE <50 123.06 - 813.86 ng/dL MALE AGE >50 89.98 - 780.10 ng/dL FEMALE PREMENOPAUSE AGE 21 - 60 9.01 - 47.94 ng/dL FEMALE POSTMENOPAUSE AGE 45 - 89 <7.00 - 45.62 ng/dL REFERENCE RANGE AND METHODOLOGY CHANGED 07/09/2017 Performed By: #### L509.3000, L509.4001 #### [facility] [address] [place], [address] PROGESTERONE LEVEL Collected: 08/18/2017 Status: F Source: LUIZA 11:00 AM [facility] REPOSITORY TYPE CODE TESTS RESULT OUT OF REFERENCE UNITS RANGE LAB L509.4001 See Comment ng/mL Progesterone Normal 5.11 Result Comment: Progesterone Reference Table: UNITS Female: Follicular 0.15 - 1.40 ng/mL Luteal 3.34 - 25.56 ng/mL Mid-luteal 4.44 - 28.03 ng/mL Postmenopausal 0.0 - 0.73 ng/mL : 1st Trimester 11.22 - 90.00 ng/mL 2nd Trimester 25.55 - 89.40 ng/mL 3rd Trimester 48.40 -422.50 ng/mL Performed By: #### L509.3000, L509.4001 #### [facility] [address] [place], [address] ALLERGIES ALLERGIES DATE TYPE / CODE NAME / CODE REACTION SEVERITY SOURCE 08/04/2018 Drug bee venom Anaphylaxis Unknown [place] Allergy/416 protein (honey Community 059369(SNOM bee)/[id number] Hospital ED CT) 5(RXNORM) Repository ENCOUNTERS ENCOUNTERS ADMIT/DISCHARGE ACCOUNT NUMBER ADMITTING ENCOUNTER LOCATION SOURCE CLASS 08/06/2018/08/06/19 [id number] Ambulatory [address] ding:SDCRoom Repository : AC12 07/31/2018 [id number] Ambulatory [facility] ding:LABSPEC Repository 01/26/2018/01/27/20 [id number] Ambulatory ABuilding:KATHERINE [place] 18 URoom: Health 0115Bed: A Foundation Repository 01/07/2018 [id number] Ambulatory [facility] ding:HPRAD Repository 01/07/2018/01/08/20 [id number] Ambulatory BMSBuilding: [place] 18 BMS.[facility] Repository 12/22/2017 [id number] Ambulatory BMSBuilding: [place] BMS.[facility] Repository 12/16/2017 [id number] Ambulatory [facility] ding:LABSPEC Repository 11/24/2017 [id number] Ambulatory [facility] ding:HPRAD Repository 11/24/2017/11/25/19 [id number] Ambulatory BMSBuilding: [place] 18 BMS.[facility] Repository 10/13/2017 [id number] Ambulatory [facility] ding:HPRAD Repository 10/13/2017/10/14/19 [id number] Ambulatory BMSBuilding: [place] 18 BMS.[facility] Repository 09/15/2017 [id number] Ambulatory [facility] ding:HPRAD Repository 09/15/2017/09/15/19 [id number] Ambulatory BMSBuilding: [place] 18 BMS.[facility] Repository 09/01/2017 [id number] Ambulatory [facility] ding: Repository 08/31/2017 [id number] [facility] Repository 08/30/2017/09/01/19 [id number] [place], Ambulatory [place] 18 [facility] ding:[id number] Repository : OW396Rhs: 1 08/30/2017 [id number] [place], Ambulatory BMSBuilding: [place] Иван BMS.CF.[facility] Repository 08/30/2017 [id number] [place], Ambulatory BMSBuilding: [place] Иван BMS.CF.[facility] Repository 08/18/2017 [id number] Ambulatory [facility] ding:LAB Repository PAYERS PAYERS ENCOUNTER GUARANTOR PAYER SUBSCRIBER SOURCE 08/06/2018 MARIANELA Kennedy Primary MARIANELA Diazjim [id number] Insurance:[facility]: [facility] y Number: [id number] [id number] Repository [address]Rvv: (330) Date:9872-11-15CO [phone] () [address]18[address]ITJ[place], [place] [address]BA: 08/06/2018 Secondary NOT GIVENUNK [place] Insurance:SELF PAY [facility] Number: Effective Repository Date:2018-07-31 07/31/2018 MARIANELA L Primary MARIANELA L [place] [id number] Insurance:ANTHEMPolic [place]OR[place]OB: [facility] y Number: [id number] [place], [place] [id number] Repository [address]Qaf: (330) Date:6023-00-77RR [phone] () [place]MGWNY[place], [place] [address]ZS: 07/31/2018 Secondary NOT GIVENUNK [place] Insurance:SELF PAY [facility] Number: Effective Repository Date:2018-07-31 01/26/2018 MARIANELA L Primary [facility]:AETNA ZOHREHDOB: [facility] [id number] [facility] Number: [id number] [place] [address] [id number] [address] [place] [address] Date:2018-01-08 - [place], [place] [address]Jfs: [phone] [id number] [address]Rsb: () Name:[facility] [phone] 738052XWGINA MAC ()Tel: [phone]: ([phone] 01/07/2018 MARIANELA L Primary MARIANELA L [place] [id number] Insurance:AETNAPolicy [place]: [facility] Number: [id number] City, [place] [id number] Repository [address]Bnq: 330) Date:5079-58-64EF [phone] () 252283COGINA MAC [phone]: 01/07/2018 Secondary NOT GIVENUNK [place] Insurance:SELF PAY [facility] Number: Effective Repository Date:2018-01-07 01/07/2018 MARIANELA L Primary MARIANELA [id number] Insurance:AETNAPolicy MORGANDOB: [facility] Number: [id number] City, [place] [id number] Repository [address]Udo: (330) Date:7906-73-34WV [phone] () [address] [address]FZ: 01/07/2018 Secondary NOT GIVENUNK [place] Insurance:SELF PAY [facility] Number: Effective Repository Date:2017-12-31 12/22/2017 MARIANELA L Primary MARIANELA L [place] [id number] Insurance:AETNAPolicy ZOHREHDOB: [facility] Number: [id number] City, [place] [id number] Repository [address]Jsr: (330) Date:0201-87-42FM [phone] () 8423[place] [address]TP: 12/22/2017 Secondary NOT GIVENUNK [place] Insurance:SELF PAY [facility] Number: Effective Repository Date:2017-11-24 12/16/2017 MARIANELA L Primary MARIANELA L [place] [id number] Insurance:AETNAPolicy ZOHREHDOB: [facility] Number: [id number] City, [place] [id number] Repository [address]Qoq: (330) Date:3537-77-62JY [phone] () 8424[place], [place] [address]SU: 12/16/2017 Secondary NOT GIVENUNK [place] Insurance:SELF PAY [facility] Number: Effective Repository Date:2017-12-16 11/24/2017 MARIANELA L Primary MARIANELA L [place] [id number] Insurance:AETNAPolicy ZOHREHDOB: [facility] Number: [id number]-[facility] [id number] Repository [place] [address]Rlo: Date:8905-36-99PP [address]MXGINA MAC () [address]QD: 11/24/2017 Secondary NOT GIVENUNK [place] Insurance:SELF PAY [facility] Number: Effective Repository Date:2017-11-24 11/24/2017 MARIANELA L Primary MARIANELA L [place] [id number] Insurance:AETNAPolicy MORGANDOB: Community [place] Number: [id number], [id number] Repository [place] [address]Pwo: Date:0697-32-20JI [address]CYGINA MAC () [address]JI: 11/24/2017 Secondary NOT GIVENUNK [place] Insurance:SELF PAY [facility] Number: Effective Repository Date:2017-10-14 10/13/2017 MARIANELA Primary MARIANELA [place] [id number] RUBIA Insurance:AETNAPolicy MORGANDOB: Community [place], Number: [id number] [facility] [address]Ass: [id number] Repository Date:6663-27-55UQ [address] () [address]66[address]FQ GINA [place] [phone]: 10/13/2017 Secondary NOT GIVENUNK [place] Insurance:SELF PAY [facility] Number: Effective Repository Date:2017-10-13 10/13/2017 MARIANELA Primary MARIANELA [place] [id number] RUB[place] Insurance:AETNAPolicy MORGANDOB: Community [facility], Number: [id number] Santa Fe Medical Center [address]Xkb: [id number] Repository Date:4329-72-46ZK [address]OX () [address]TCGINA [place] [address]LA: 10/13/2017 Secondary NOT GIVENUNK [place] Insurance:SELF PAY [facility] Number: Effective Repository Date:2017-10-13 09/15/2017 MARIANELA Primary MARIANELA BRUNER1111 [place] Insurance:AETNAPolicy ZOHREHDOB: Community [place], Number: [id number] Santa Fe Medical Center [address]Ipu: [id number] Repository Date:2541-99-21WC [address]OX (HP) 517[address]SWGINA [place] [phone]: 09/15/2017 Secondary NOT GIVENUNK [place] Insurance:SELF PAY [facility] Number: Effective Repository Date:2017-09-15 09/15/2017 MARIANELA Primary MARIANELA [id number] [place] Insurance:AETNAPolicy ZOHREHDOB: Community [place], Number: [id number] Santa Fe Medical Center [address]Dyq: [id number] Repository Date:7929-91-97PP BOX (HP) 646[address]WF GINA [place] [address]RE: 09/15/2017 Secondary NOT GIVENUNK [place] Insurance:SELF PAY [facility] Number: Effective Repository Date:2017-09-09 09/01/2017 MARIANELA Primary MARIANELA BRUNER1111 [place] Insurance:AETNAPolicy ZOHREHDOB: Community [address], Number: [id number] Santa Fe Medical Center [address]Quh: [id number] Repository Date:4967-38-37YA BOX (HP) [address]DWGINA [place] [address]KU: 09/01/2017 Secondary NOT GIVENUNK [place] Insurance:SELF PAY [facility] Number: Effective Repository Date:2017-08-26 08/31/2017 MARIANELA Primary MARIANELA BRUNER1111 [place] Insurance:AETNAPolicy ZOHREHDOB: Community [place], Number: [id number] Santa Fe Medical Center [address]Uzg: [id number] Repository Date:0406-96-17SQ BOX (HP) [place] [address]ZB: 08/31/2017 Secondary NOT GIVENUNK [place] Insurance:SELF PAY [facility] Number: Effective Repository Date:2017-08-31 08/30/2017 MARIANELA Primary MARIANELA PA1 [place] Insurance:AETNAPolicy [place]OR[place]OB: Community [place], Number: [id number] Santa Fe Medical Center [address]Zdh: [id number] Repository Date:1895-93-30OI BOX (HP) [id number] G[place] [address]US: 08/30/2017 Secondary NOT GIVENUNK [place] Insurance:SELF PAY [facility] Number: Effective Repository Date:2017-08-30 08/30/2017 [place] Primary MARIANELA PA1 [place] Insurance:AETNAPolicy [place]ORG[place]OB: Community [address] [place], Number: [id number] Santa Fe Medical Center [address]Tfl: [id number] Repository Date:8117-25-18TM BOX (HP) 353058HA G[place] [address]FQ: 08/30/2017 Secondary NOT GIVENUNK [place] Insurance:SELF PAY [facility] Number: Effective Repository Date:2017-08-30 08/30/2017 MARIANELA Primary MARIANELA PA1 [place] Insurance:AETNAPolicy [place]OR[place]OB: Community [place], Number: [id number] Santa Fe Medical Center [address]Sbv: [id number] Repository Date:6336-76-15OW BOX (HP) 149090WHGINA [place] [address]BM: 08/30/2017 Secondary NOT GIVENUNK [place] Insurance:SELF PAY [facility] Number: Effective Repository Date:2017-08-30 08/18/2017 MARIANELA Primary MARIANELA PA1 [place] Insurance:AETNAPolicy MORGANDOB: Community [address], Number: [id number] Santa Fe Medical Center [address]Qof: [id number] Repository Date:3757-42-65OP BOX () 673638VN G[place] [address]LA: 08/18/2017 Secondary NOT GIVENUNK [place] Insurance:SELF PAY [facility] Number: Effective Repository Date:2017-08-18
== END 2018-08-06 16:10 | disposition home or self-care (01) ==
LOC: SDC 11:20 → AC 11:20
PROVIDERS: Anesthesiology; Family Provider Family Medicine; PCP Family Medicine; Referring Provider Obstetrics & Gynecology; Visit Provider Obstetrics & Gynecology
PROC: (CPT 58671; principal; 2018-08-06 12:45)
DX: Z30.2 Encounter for sterilization (principal); D06.0 Carcinoma in situ of endocervix; F32.9 Major depressive disorder, single episode, unspecified; F41.9 Anxiety disorder, unspecified; Z79.899 Other long term (current) drug therapy; Z87.891 Personal history of nicotine dependence
CPT/HCPCS: 00851; 58671; 36415; 81025; 85027; 85610; 85730; 86850; 86900; J7120; J2405

== ENCOUNTER → 2018-08-27 16:41 | Outpatient (CLI) | payer BC, SELFPAY ==
[2018-08-06 11:37] VITALS: BMI 36.9
== END ==
PROVIDERS: Visit Provider Obstetrics & Gynecology
DX: N39.0 Urinary tract infection, site not specified (principal)
CPT/HCPCS: 87086

== ENCOUNTER 2018-08-28 11:55 | Emergency (ER) | payer BC, SELFPAY ==
[2018-08-28 11:59] VITALS: BP 121/88; PULSE 76; RESP 16; TEMP 36.7; O2SAT 98; BMI 36.9
--- NOTE | 2018-08-28 12:33 | CT_ITS ---
STUDY: CT ABDOMEN AND PELVIS WITHOUT CONTRAST REASON FOR EXAM: Female, 33 years old. Abdominal pain. Nausea and vomiting. RADIATION DOSAGE (If Supplied By Facility): CTDIvol = ( 16.37 ) mGy, DLP = ( 826.05 ) mGycm TECHNIQUE: Transaxial images were obtained from the dome of the diaphragm to the symphysis pubis without oral contrast, and without intravenous contrast. Sagittal and coronal images were reconstructed. Individualized dose optimization techniques were used for this CT. COMPARISON: Comparison is made with prior study dated January 25, 2013. FINDINGS: Minimal degree of dependent bibasilar atelectasis. The visualized portions of the heart are within normal limits. Normal liver. Normal gallbladder and extrahepatic biliary system. Normal spleen. Normal pancreas. Normal bilateral adrenal glands. Normal right kidney. A tiny nonobstructive calculus is seen in the upper pole calyx of the left kidney. There is a small hiatal hernia. Normal small intestine. There are scattered colonic diverticula consistent with diverticulosis. The appendix is visualized and appears normal. Normal abdominal aorta. Normal inferior vena cava. There is borderline retroperitoneal lymphadenopathy with enlarged nodes no greater than 10mm in the short axis diameter. Normal urinary bladder. Bilateral tubal ligation. Normal abdominal wall. Small bilateral benign appearing inguinal lymph nodes. Normal osseous structures. CT/Abdomen/Pelvis without Cont IMPRESSION: Scattered sigmoid diverticula. Nonobstructive calculus in the upper pole calyx of the left kidney. Electronically Signed: Albert Horner MD at 14:49 EST , Service support ,
[2018-08-28] MEDS: Ondansetron 4 MG/2 ML Vial IV (13:01)
[2018-08-28] MEDS: Morphine 4 MG/ML Syringe IV (13:01)
[2018-08-28 13:11] LABS: Absolute Lymphocyte Count 1.94 X10^3/ul (0.83-4.51); Absolute Neutrophil Count 7.4 X10^3/uL (2.0-7.7); Basophil# 0.02 X10^3/uL; Basophil% 0.2 % (0-1); Eosinophil# 0.25 X10^3/uL; Eosinophils% 2.5 % (0-5); Hematocrit 41.2 % (37-47); Hemoglobin 14.1 g/dl (12.0-15.0); Lymphocyte # 1.94 X10^3/ul (4.0); Mean Corp Hgb Conc 34.2 g/gl (32-36); Mean Corpuscular Hgb 30.3 pg (27.0-32.0); Mean Corpuscular Volume 88.4 fL (81-99); Mean Platelet Vol. 9.8 fl (6.2-12.0); Monocyte# 0.58 X10^3/uL; Monocyte% 5.7 % (0-10); Neutrophil # 7.37 X10^3/uL (2.7-7.7); Neutrophil % 72.2 % (47-70); Platelet Count 302 K/mm3 (150-450); RBC Distribution Width CV 12.9 % (11.6-14.6); RBC Distribution Width SD 41.3 fl (35.1-43.9); Red Blood Count 4.66 M/mm3 (4.2-5.4); White Blood Count 10.2 K/mm3 (4.4-11.0)
[2018-08-28 13:13] LABS: POSITIVE COUNT NO; POSITIVE DIFFERENTIAL NO; POSITIVE MORPHOLOGY NO
[2018-08-28 13:28] LABS: AST(SGOT) 16 U/L (15-37); Alanine Aminotransfer ALT/SGPT 28 U/L (13-56); Albumin, Serum 3.6 g/dL (3.2-5.0); Alkaline Phosphatase 125 U/L (45-117); Anion Gap 7 (5-15); BUN 10 mg/dL (7-18); BUN/Creat Ratio 12.6 RATIO (10-20); Bilirubin, Direct 0.12 mg/dL (0.00-0.30); Calcium,Total 8.4 mg/dL (8.5-10.1); Chloride 105 mmol/L (98-107); Creatinine, Serum 0.79 mg/dL (0.55-1.02); EST Glomerular Filtration Rate 90 mL/min (>60); Est Glom Filt Rate - Afr Amer 109 mL/min (>60); Estimated Creatinine Clearance 100.34 ml/min; Globulin 3.7 g/dL (2.2-4.2); Glucose 71 mg/dL (74-106); Lipase 68 U/L (73-393); Potassium 3.4 mmol/L (3.5-5.1); Protein, Total 7.3 g/dL (6.4-8.2); Sodium Level 139 mmol/L (136-145)
[2018-08-28 13:57] LABS: Pregnancy, Serum, hCG Quali. NEGATIVE Negative (0-9 Nonpreg)
--- NOTE | 2018-08-28 14:20 | ED.DCSUM_ITS ---
- ER Visit Summary Date of Service: 08/28/18 Chief Complaint: Abdominal pain History of Present Illness: The patient is a 33 F who has 3 days of abdominal pain. She describes sharp and stabbing pains just below her umbilicus. She has had nausea without vomiting. She has also been having diarrhea. She admits to pain with urination but no burning or blood. She had a bilateral tubal ligation with Dr. Miller on August 06. She had a negative ultrasound and urinalysis in the office today and she was sent here for lab work and a CT scan. Patient has been using Midol to help with the pain. Physical Examination: Vital signs reviewed. HEENT exam unremarkable. Heart is regular rate and rhythm without murmurs. Lungs are clear to auscultation. Abdomen is soft with tenderness just below the umbilicus as well as voluntary guarding. Extremities reveal no edema. Skin exam normal. Neurologic exam normal. Test Results: Laboratory studies show potassium 3.4. Alkaline phosphatase 125. HCG negative. Urinalysis reveals no infection or blood. CAT scan of the abdomen and pelvis reveals scattered diverticuli with a nonobstructive calculus in the kidney. No other acute findings are noted. Emergency Department Course and Treatment: I did a bladder scan after he urinated. It showed only 35 mL's. I discussed with Dr. Miller she recommended some Colace for home. I will give the patient short course of [place] for pain. She will follow-up with Dr. Miller. Treatment Plan: [] Disposition: Discharge Impression: Abdominal pain, recent bilateral tubal ligation This note was generated with [employer] dictation software. It may contain incorrect words, spelling, and punctuation that were not noted in review of the chart prior to signing ED Disposition - Plan for ED Patient: Referrals: Rosita Castañeda MD [Primary Care Provider] -
[2018-08-28 14:39] LABS: Mucous, Urine 0 SEEN /hpf (<or=2+); Red Blood Cells-Urine 0 SEEN /hpf (0-5)
[2018-08-28 14:42] LABS: Color, Urine Yellow (Yellow); Glucose, Dipstick Normal (Normal); Ketone-Dipstick Negative (Negative); Leukocyte Esterase-Dipstick 25 /ul (Negative); Nitrite-Dipstick Negative (Negative); Occult Blood-Urine 25 /ul (Negative); Protein-Dipstick Negative (Negative); Urine Bilirubin Dipstick Negative (Negative); Urine Clarity Clear (Clear); Urine Urobilinogen Normal (Normal); Urine pH 6.5 (5.0 - 8.0)
[2018-08-28 14:49] LABS: Bacteria 1+ /hpf (None Seen); Squamous Epithelial Cells - UA 5-10 SEEN /hpf (5-10); White Blood Cells 0-5 SEEN /hpf (0-5)
--- NOTE | 2018-08-28 15:06 | ED.DEP ---
ED Disposition - Plan for ED Patient: Disposition: Home or Assisted Living Instructions: ED Abdominal Pain Unkn Cause Prescriptions: Hydrocodone Bitart/Apap 5-325 [[place] 5MG-325MG] 1 tab PO Q6H PRN PRN 3 Days #10 tab PRN Reason: Pain Docusate Sodium [Colace] 100 mg PO DAILY #20 cap Referrals: Rosita Castañeda MD [Primary Care Provider] -
[2018-08-28 15:16] VITALS: BP 125/74; PULSE 66; RESP 14; O2SAT 96
== END 2018-08-28 15:16 | disposition home or self-care (01) ==
PROVIDERS: Emergency Provider Emergency Medicine; Family Provider Family Medicine; PCP Family Medicine
DX: R10.9 Unspecified abdominal pain (principal); R11.0 Nausea; R30.0 Dysuria; R19.7 Diarrhea, unspecified; K57.30 Diverticulosis of large intestine without perforation or abscess without bleeding; N20.0 Calculus of kidney; Z98.51 Tubal ligation status; Z79.899 Other long term (current) drug therapy
CPT/HCPCS: 74176; 80048; 80076; 81001; 83690; 84703; 85025; 96374; 96375; 99283; J7030; A4216; J2405

== ENCOUNTER → 2019-01-28 18:23 | Outpatient (CLI) | payer BC, SELFPAY | PROVIDERS: Family Provider Family Medicine; PCP Family Medicine; Visit Provider Family Medicine | DX: Z00.00 Encounter for general adult medical examination without abnormal findings (principal) ==

== ENCOUNTER → 2019-01-28 | Outpatient (CLI) | payer BC, SELFPAY ==
[2019-01-28 13:36] LABS: Mean Corp Hgb Conc 34.1 g/gl (32-36); Mean Corpuscular Hgb 29.7 pg (27.0-32.0); Mean Platelet Vol. 9.9 fl (6.2-12.0); Platelet Count 341 K/mm3 (150-450); RBC Distribution Width CV 12.9 % (11.6-14.6); RBC Distribution Width SD 41.6 fl (35.1-43.9); Red Blood Count 4.71 M/mm3 (4.2-5.4); White Blood Count 11.5 K/mm3 (4.4-11.0)
[2019-01-28 13:42] LABS: Scan Indicated on CBC? Y/N NO
[2019-01-28 13:46] LABS: Hemoglobin A1c 4.9 % (4.2-6.3)
[2019-01-28 14:09] LABS: Estradiol 21.2 pg/mL; Progesterone Level 0.17 ng/mL (See Comment); T4 Free Direct 0.85 ng/dL (0.76-1.46); Thyroid Stim Hormone (TSH) 0.95 uIU/mL (0.358-3.74)
--- NOTE | 2019-01-28 18:30 | US_ITS ---
STUDY: ULTRASOUND OF THE FEMALE PELVIS - COMPLETE REASON FOR EXAM: Female, 33 years old. Right lower quadrant pain LMP: TECHNIQUE: Transvaginal TECHNICAL QUALITY: Adequate. COMPARISON: None. FINDINGS: The uterus is anteverted and is in a midline position. The uterus measures 7.6 x 4.2 x 3.6 cm. Normal uterine cervix. The endometrium measures 3 mm in thickness, and is hyperechoic. There is no demonstrated endometrial mass. There is no demonstrated myometrial mass. I.U.D. - The patient does not have an I.U.D. The right ovary is visualized. The right ovary measures 3.1 x 2.1 x 1.7 cm. There is a simple 1.6 and meter cyst. There is normal arterial and normal venous vascularity. The left ovary is visualized. The left ovary measures 2.6 x 2.2 x 1.7 cm. There is no left ovarian cyst or ovarian mass. There is no visualized left adnexal mass or complex lesion. There is normal arterial and normal venous vascularity. There is no fluid in the cul-de-sac. The bladder is sonographically normal US/Transvaginal Non- IMPRESSION: Simple 1.6 cm right ovarian cyst, otherwise unremarkable study Electronically Signed: Sharif Cm MD at 10:21 EDT , Service support ,
[2019-02-05 11:26] LABS: HPV HC, High Risk Negative (Negative)
[2019-02-05 12:31] LABS: HPV Reflexed? YES, CHARGE PATIENT
== END | disposition home or self-care (01) ==
PROVIDERS: Family Provider Family Medicine; PCP Family Medicine; Referring Provider Obstetrics & Gynecology; Visit Provider Obstetrics & Gynecology
DX: D06.0 Carcinoma in situ of endocervix (principal); R10.2 Pelvic and perineal pain
CPT/HCPCS: 36415; 76830; 82670; 83036; 84144; 84403; 84439; 84443; 84481; 85027; 87624; 88175; 93976; G0145

== ENCOUNTER → 2020-09-14 13:23 | Outpatient (CLI) | payer BC, SELFPAY ==
--- NOTE | 2020-09-14 13:15 | CER_PTH ---
PATIENT: MARIANELA BRUNER LOC: [facility] U#:[id number] AGE/SX: 40/F ROOM: RE09/14/[address]: Dr. Tevin Anderson MD : 1985 BED: DIS: SPEC #: [id number] RECD: 09/14/20 13:49 STATUS: JANIE REMelissa #: [id number] JOSE: 09/14/20 13:[address]: Tevin Anderson DEPT: SURGICAL PATHOLOGY RECD BY: Lauren Jules ENTERED: 09/15/20 08:19 SP TYPE: CERV OTHR DR: Dr. Rosita Castañeda MD Tissues: A - Endocervical B - Uterine cervix, NOS Procedures: Surgery Specimen Level IV HEADER OPERATION: ECC, endometrial biopsy PRE-OP DIAGNOSIS: History of cervical CA TISSUE SUBMITTED: A - ECC, B - Endometrial biopsy MICROSCOPIC DIAGNOSIS A. ECC: Fragments of benign ecto- and endocervical mucosa with moderate chronic inflammation and squamous metaplasia. See comment. B. Endometrial biopsy: Weakly proliferative endometrium. Fragments of benign endocervical epithelium and desquamated benign squamous epithelial cells. See comment. NORMA:brian 09/18/2020 COMMENT No evidence for endocervical carcinoma in situ and high grade squamous intraepithelial lesion. Clinical correlation and appropriate follow up are necessary. MICROSCOPIC DESCRIPTION Slides are reviewed. GROSS DESCRIPTION A - Received in fixative is one container labeled with the patient's name and designated ECC. The specimen consists of multiple fragments of hemorrhagic mucoid tissue that in aggregate measure 1.5 x 1 x 0.2 cm. The specimen is totally submitted in one cassette. B - Received in fixative is one container labeled with the patient's name and designated EM biopsy. The specimen consists of multiple fragments of hemorrhagic soft tissue mixed with mucoid tissue that in aggregate measure 2 x 1 x 0.2 cm. The specimen is totally submitted in one cassette. / NORMA:brian 09/15/20 TC:5 CPT: 24341 x2
[2020-09-18 20:58] LABS: HPV APTIMA, High Risk Negative (Negative); HPV Reflexed? YES, CHARGE PATIENT
== END ==
PROVIDERS: PCP Family Medicine; Visit Provider Obstetrics & Gynecology
DX: Z12.4 Encounter for screening for malignant neoplasm of cervix (principal); N87.9 Dysplasia of cervix uteri, unspecified; Z85.41 Personal history of malignant neoplasm of cervix uteri
CPT/HCPCS: 87624; 88175; 88305; G0145

== ENCOUNTER → 2021-03-15 | Outpatient (CLI) | payer BC, SELFPAY ==
[2021-03-22 12:47] LABS: HPV APTIMA, High Risk Negative (Negative); HPV Reflexed? YES, CHARGE PATIENT
== END | disposition home or self-care (01) ==
PROVIDERS: Visit Provider Obstetrics & Gynecology
DX: D06.0 Carcinoma in situ of endocervix (principal)
CPT/HCPCS: 87624; 88175; G0145

== ENCOUNTER 2021-07-27 08:34 | Outpatient (CLI) | payer BC, SELFPAY | END 2021-07-27 23:59 | disposition short-term general hospital (02) | LOC: LABSPEC 08:35 | PROVIDERS: Referring Provider Physician Assistant Surgical; Visit Provider Physician Assistant Surgical | DX: U07.1 COVID-19 (principal) | CPT/HCPCS: 87635; U0003; U0005 ==

== ENCOUNTER → 2021-11-29 | Outpatient (CLI) | payer BC, SELFPAY ==
[2021-12-05 18:20] LABS: HPV APTIMA, High Risk Negative (Negative); HPV Reflexed? YES, CHARGE PATIENT
== END | disposition home or self-care (01) ==
LOC: LABSPEC 14:34
PROVIDERS: Visit Provider Obstetrics & Gynecology
DX: D06.0 Carcinoma in situ of endocervix (principal)
CPT/HCPCS: 87624; 88175; G0145

== ENCOUNTER → 2023-01-08 | Outpatient (CLI) | payer OTHER, SELFPAY ==
--- NOTE | 2023-01-08 10:30 | BI_ITS ---
MAMMOGRAPHY - BILATERAL SCREENING REASON FOR EXAM: Female, 37 years old. Routine annual screening examination. PERTINENT HISTORY: Mother with breast cancer. TECHNIQUE: Digital bilateral breast damaris (3D mammographic acquisition) in the CC and MLO projections. 2-D mediolateral oblique (MLO) and craniocaudad (CC) views of both breasts were obtained. CAD: Full Field Digital Mammography with Computer Added Detection was performed. COMPARISON: None. Baseline examination. FINDINGS: Breast Composition: The breasts are heterogeneously dense, which may obscure small masses. There are no dominant masses or suspicious calcifications. No other significant abnormalities are identified. BI/SCRN MAMM (CAD)W/DAMARIS BILAT IMPRESSION: Negative screening mammogram. Yearly followup mammogram recommended. (A) ASSESSMENT CATEGORY: BIRADS Category 1: Negative. A letter regarding these results will be sent to the patient by the facility within 30 days. Approximately 10% of breast cancers are not detected by mammography. A normal mammogram should not delay biopsy of a clinically suspicious abnormality. Electronically Signed: Rakesh Rebollar DO at 14:00 EDT ,
== END | disposition home or self-care (01) ==
LOC: OPBI 10:29
PROVIDERS: PCP Family Medicine; Referring Provider Family Medicine; Visit Provider Family Medicine
DX: Z12.31 Encounter for screening mammogram for malignant neoplasm of breast (principal); Z80.3 Family history of malignant neoplasm of breast
CPT/HCPCS: 77063; 77067

== ENCOUNTER → 2024-12-15 | Outpatient (CLI) | payer OTHER, SELFPAY ==
[2024-12-15 12:55] LABS: Absolute Lymphocyte Count 1.98 X10^3/uL (0.83-4.51); Absolute Neutrophil Count 8.6 X10^3/uL (2.0-7.7); Basophil# 0.06 X10^3/uL; Basophil% 0.5 % (0-1); Eosinophil# 0.28 X10^3/uL; Eosinophils% 2.4 % (0-5); Hematocrit 42.5 % (37-47); Hemoglobin 14.5 g/dL (12.0-15.0); Lymphocyte # 1.98 X10^3/ul (0.83-4.51); Lymphocyte % 17.2 % (19-41); Mean Corp Hgb Conc 34.1 g/dL (32-36); Mean Corpuscular Hgb 29.4 pg (27.0-32.0); Mean Corpuscular Volume 86.2 fL (81-99); Mean Platelet Vol. 10.4 fl (6.2-12.0); Monocyte# 0.63 X10^3/uL; Monocyte% 5.5 % (0-10); NRBC Flagged by Analyzer 0 % (0-5); Neutrophil # 8.55 X10^3/uL (2.7-7.7); Neutrophil % 74.1 % (47-70); Platelet Count 368 K/mm3 (150-450); RBC Distribution Width CV 13.2 % (11.6-14.6); RBC Distribution Width SD 40.9 fl (35.1-43.9); Red Blood Count 4.93 M/mm3 (4.2-5.4); White Blood Count 11.5 K/mm3 (4.4-11.0)
[2024-12-15 13:49] LABS: Cholesterol 201 mg/dL (<=200); High Density Lipoprotein 48 mg/dL; Low Density Lipoprotein Calc. 131 mg/dL; Triglycerides 112 mg/dL; Very Low Density Lipoprotein 22 mg/dL (5-40); Vitamin D,25 Hydroxy 10.8 ng/mL (30-100)
[2024-12-20 12:08] LABS: HPV APTIMA, High Risk Negative (Negative)
== END | disposition home or self-care (01) ==
PROVIDERS: PCP Family Medicine; Referring Provider Advanced Practice Midwife; Visit Provider Advanced Practice Midwife
DX: Z13.21 Encounter for screening for nutritional disorder (principal); Z13.29 Encounter for screening for other suspected endocrine disorder; Z13.220 Encounter for screening for lipoid disorders; Z12.4 Encounter for screening for malignant neoplasm of cervix; N92.0 Excessive and frequent menstruation with regular cycle
CPT/HCPCS: 36415; 80061; 82306; 84443; 85025; 87624; 88175; G0145

== ENCOUNTER → 2024-12-22 | Outpatient (CLI) | payer OTHER, SELFPAY ==
--- NOTE | 2024-12-22 12:19 | US_ITS ---
PROCEDURE: TRANSVAGINAL NON- 12/22/2024 REASON FOR EXAM: ABNORMAL UTERINE BLEEDING TECHNIQUE: Transvaginal pelvic ultrasound. Color doppler analysis of the ovaries. COMPARISON: Pelvic ultrasound 01/28/2019. FINDINGS: Measurements: Uterus: 8.5 x 4.0 x 5.0 cm for volume of 87.5 mL Endometrial Thickness: 1.2 cm Right Ovary: 3.2 x 1.4 x 2.1 cm for volume of 5.0 mL Left Ovary: 1.7 x 1.8 x 1.9 cm for volume of 3.0 mL Uterus: Anteverted. Normal contour and myometrial echotexture. Endometrium: Normal echotexture. Right ovary: Normal size and echotexture. Left ovary: Normal size and echotexture. Other adnexal findings: None. Cul-de-sac: No free intraperitoneal fluid identified. Color Doppler: Normal color flow doppler signal at both ovaries. US/Transvaginal Non- IMPRESSION: Unremarkable pelvic ultrasound, with endometrial thickness of 1.2 cm. Reading Location: [facility]
--- NOTE | 2024-12-22 13:30 | BI_ITS ---
EXAM: SCRN MAMM (CAD)W/DAMARIS BILAT 12/22/2024 CLINICAL HISTORY: F, Age 39 y/o , ANNUAL TECHNIQUE: Bilateral screening digital breast tomosynthesis with 2D and 3D images. Computer aided detection. COMPARISON: Prior exam(s) dated 01/08/2023. FINDINGS: TISSUE DENSITY: The breast tissue is composed of scattered area of fibroglandular density. Bilateral Breast Mammographic Findings: No significant masses, calcifications or other abnormalities are identified. BI/SCRN MAMM (CAD)W/DAMRAIS BILAT IMPRESSION: Right Breast: BIRADS 1 NEGATIVE. Left Breast: BIRADS 1 NEGATIVE. OVERALL FINAL ASSESSMENT: BIRADS 1 NEGATIVE. RECOMMENDATION: Routine annual follow-up in 1 Year A letter with findings and recommendations will be mailed to the patient. Reading Location: [id number]
== END | disposition home or self-care (01) ==
LOC: OPBI 12:18
PROVIDERS: PCP Family Medicine; Referring Provider Advanced Practice Midwife; Visit Provider Advanced Practice Midwife
DX: Z12.31 Encounter for screening mammogram for malignant neoplasm of breast (principal); N93.9 Abnormal uterine and vaginal bleeding, unspecified
CPT/HCPCS: 76830; 77063; 77067